=== PATIENT | female | born 1945 | race Caucasian/White ===

== ENCOUNTER → 2017-03-31 | Outpatient (CLI) | payer MEDICARE ==
[~2017-03-31] MED LIST: ALBU0.632 NEB; ALBU5SOL10 IH; ALPR-557 PO; ALPR.25T PO; AMLO5TAB2 PO; ASP81CT PO; ASP81TEC PO; ASPI1TAB17 PO; ATOR80TA PO; ATR20T PO; BNZ20T; CATHETER FLUSH 10 ML SYR IV PRN; CLOP75TA PO; DLT240CCR; HCT25T PO; HSCO125 PO; IOHEXOL 350 MG/ML 100 ML (OMNIPAQUE 350) VIAL IV ONE; LISI20TA PO; LISINOPRIL; METO-272 PO; NS 100 ML (IVPB) BAG IV ONE; NTR.4SL SL; NTR.6TD TOP; ONDA-42 SL; ROSU10TA12 PO; VENTOLIN INHALER INH
--- NOTE | 2017-03-31 13:55 | Diagnostic Imaging Report ---
PROCEDURE: CT abdomen and pelvis with contrast. TECHNIQUE: Multiple contiguous axial images were obtained through the abdomen and pelvis after administration of intravenous contrast. INDICATION: Gross hematuria. History of colon cancer. 100 mL of Omnipaque 350 is administered intravenously. FINDINGS: The lung bases demonstrate minimal atelectasis or scarring. The liver, the spleen, the adrenals, and the pancreas appear unremarkable. Cholecystectomy clips are seen. The kidneys have symmetric enhancement and contrast excretion. There is no hydronephrosis or focal lesion. The urinary bladder appears unremarkable. The abdominal aorta demonstrates an infrarenal aneurysm measuring 3.4 x 2.8 cm in size. This compares to 3.3 x 3 cm on 03/30/2016 exam. There is intramural thrombus. No aneurysmal dilatation of the common iliac arteries is seen. The common iliac arteries demonstrate significant atherosclerotic plaque. There is a stent in the right external iliac artery which appears patent. No para-aortic significantly enlarged lymph node is seen. There is no significant free fluid or fluid collection in the abdomen or pelvis. Srtdw-ni-owhfymfl amount of fecal material is seen in the colon. The osseous structures appear grossly unremarkable. IMPRESSION: Infrarenal 3.4 cm AAA with minimal enlargement compared to 03/30/2016 exam. Dictated by: Dictated on workstation # [id number]
== END ==
LOC: RAD 11:20
PROVIDERS: ATTEND Nurse Practitioner Family
DX: I72.2 Aneurysm of renal artery (principal); R31.0 Gross hematuria; R11.0 Nausea; R10.30 Lower abdominal pain, unspecified
CPT/HCPCS: 74177

== ENCOUNTER 2017-05-11 07:53 | Day surgery (SDC) | payer MEDICARE ==
[2017-05-11] VITALS (9 sets, daily range): BP systolic 128–189; BP diastolic 71–100
[~2017-05-11] VITALS: Ht 152.4 cm; Wt 68.1 kg
[~2017-05-11 07:53] MED LIST changes: -CATHETER FLUSH 10 ML SYR IV PRN; +HEParin (CATH LAB) 2,000 ML IV ONE; -IOHEXOL 350 MG/ML 100 ML (OMNIPAQUE 350) VIAL IV ONE; -NS 100 ML (IVPB) BAG IV ONE; +NS IV 1000 ML 1,000 ML ONE
[2017-05-11] MEDS ORDERED: NS IV 1000 ML 1,000 ML IV SCH ×3 (08:04→12:20)
[2017-05-11 08:42] LABS: MEAN PLATELET VOLUME 10.5 FL (7.4-10.4); RED BLOOD COUNT 4.7 10^6/uL (4.35-5.85); RED CELL DISTRIBUTION WIDTH 14.4 % (10.0-14.5); WHITE BLOOD COUNT 8.8 10^3/uL (4.3-11.0)
[2017-05-11 08:51] LABS: PROTHROMBIN TIME PATIENT 13.1 SEC (12.2-14.7)
[2017-05-11 09:02] LABS: ALANINE AMINOTRANSFERASE 14 U/L (0-55); ALBUMIN 4.1 GM/DL (3.2-4.5); ANION GAP 9 MMOL/L (5-14); ASPARTATE AMINO TRANSFERASE 19 U/L (5-34); BILIRUBIN,TOTAL 0.8 MG/DL (0.1-1.0); BLOOD UREA NITROGEN 14 MG/DL (7-18); BUN/CREATININE RATIO 17; CALCIUM 9.3 MG/DL (8.5-10.1); CARBON DIOXIDE 26 MMOL/L (21-32); CHLORIDE 105 MMOL/L (98-107); CHOLESTEROL 220 MG/DL (< 200); CREATININE SERUM 0.82 MG/DL (0.60-1.30); DIRECT LDL 156 MG/DL (1-129); GFR ESTIMATED > 60; GLUCOSE 100 MG/DL (70-105); POTASSIUM 4.3 MMOL/L (3.6-5.0); SODIUM 140 MMOL/L (135-145); TOTAL PROTEIN 7.8 GM/DL (6.4-8.2); TRIGLYCERIDES 95 MG/DL (<150); VLDL CHOLESTEROL 19 MG/DL (5-40)
[2017-05-11] MEDS ORDERED: ESCI20TA45 PO (09:21)
[2017-05-11] MEDS ORDERED: METO-352 PO (09:21)
[2017-05-11] MEDS ORDERED: ALPR0.254 PO (09:24)
[2017-05-11] MEDS ORDERED: HYDR-753 PO (09:24)
[2017-05-11] MEDS ORDERED: MIDAZOLAM 5 MG/5 ML (VERSED) VIAL ONE (10:16)
[2017-05-11] MEDS ORDERED: diphenhydrAMINE 50 MG/ML INJ (BENADRYL) ONE (10:16)
[2017-05-11] MEDS ORDERED: fentaNYL INJECTION 100 MCG/2 ML AMP ONE (10:16)
--- NOTE | 2017-05-11 10:40 | Cardiac Procedure Note-CS/ASA ---
Pre-Procedure Note Pre-Op Procedure Note H&P Reviewed The H&P was reviewed, patient examined and no changes noted. Date H&P Reviewed: May 11, 2017 Time H&P Reviewed: 10:40 Conscious Sedation Pre-Proced Time Reviewed: 10:40 ASA Class: 3 Airway Mallampati Classification: (shoshone-paiute appropriate class) I. II. III, IV Lungs Heart ASA score ASA 1: a normal healthy patient ASA 2: a patient with a mild systemic disease (mid diabetes, controlled hypertension, obesity ASA 3: a patient with a severe systemic disease that limits activity (angina , COPD, prior Myocardial infarction) ASA 4: a patient with an incapacitating disease that is a constant threat to life (CHF, renal failure) ASA 5: a moribund patient not expected to survive 24 hrs. (ruptured aneurysm) ASA 6: a declared brain patient whose organs are being harvested. For emergent operations, add the letter E after the classification Grade 3 Sedation Plan: Analgesia, Amnesia, Plan communicated to team members, Discussed options with patient/fam, Discussed risks with patient/fam Note The patient is an appropriate candidate to undergo the planned procedure, sedation, and anesthesia. The patient immediately re-assessed prior to indication. KEN HUDDLESTON MD FACP FAC CCDS May 11, 2017 10:40
[2017-05-11] MEDS ORDERED: ENALAPRILAT 2.5 MG/2 ML (VASOTEC) VIAL IV ONE (11:52)
[2017-05-11] MEDS ORDERED: meTOprolol 5 MG/5 ML (LOPRESSOR) VIAL ONE (11:52)
[2017-05-11] MEDS ORDERED: CIPR250S2 PO (12:23)
--- NOTE | 2017-05-11 12:24 | Discharge Inst-Post CATH ---
Discharge Inst-CATH Post Cardiac Cath D/C Inst Follow Up/Plan f/u with Dr Villalba next week CARDIAC CATH DISCHARGE INSTRUCTIONS *Hold Metformin for 48 hours post heart cath. ACTIVITY * Go Home directly and rest. * Limit activity of the leg (or wrist if it was used) for 7 days including aerobics, swimming, jogging, bicycling, etc. * Restrict stair-climbing for 7 days if possible, if not, climb up with your non -cath leg, then bring together on the same step. * Avoid lifting, pushing, pulling or excessive movement of the affected extremity for 7 days. * Customary sexual activity may be resumed after 2 days-use caution not to use a position that strains or causes pain to the affected extremity. * No driving for 24 hours. * NO SMOKING. * Avoid straining for bowel movements for 7 days. * Gentle walking on level ground is allowed. * Returning to work will depend on the type of procedure and the results. Your doctor will discuss this with you. CALL YOUR DOCTOR FOR ANY OF THE FOLLOWING: *If bleeding from the puncture site occurs- Apply gentle pressure to site with clean cloth and call your doctor or EMS. * If a knot or lump forms under the skin, increases in size, or causes pain. * If bruising appears to be worsening or moving further down your leg instead of disappearing. * Temperature above 101 F. CARE OF YOUR GROIN INCISION; * Bruising or purple discoloration of the skin near the puncture site is common. * You may shower only, no bathtub bathing for 5 days. Be careful to avoid slipping as your leg may feel stiff. * If a closure device was used on your femoral artery, please see the attached guide regarding care of the device and your leg. * REMOVE the dressing from your groin the next day after your procedure in the shower. CARE OF YOUR WRIST INCISION; * Bruising or purple discoloration of the skin near the puncture site is common. * You may shower. * DO NOT submerge wrist. * Remove dressing in 24 hours. KEN VILLALBA MD FACP [facility] CCDS May 11, 2017 12:24
--- NOTE | 2017-05-11 12:24 | Discharge Inst-Cardiology ---
Discharge Inst-Cardiac Discharge Medications New Medications: Ciprofloxacin (Cipro) 250 Mg/5 Ml Adeola.mc.rec 250 MG PO BID, #10 TAB Continued Medications: Alprazolam (Alprazolam) 0.25 Mg Tablet 0.25 MG PO TID PRN for ANXIETY, TAB LAST FILLED 03/04/17 #84 Aspirin (Aspirin Ec 81 Mg) 81 Mg Tabec 81 MG PO DAILY, TAB Escitalopram Oxalate (Escitalopram Oxalate) 20 Mg Tablet 20 MG PO DAILY, TAB LAST FILLED 03/04/17 #30 Hydrocodone/Acetaminophen ([place] 10-325 Tablet) 1 Each Tablet 1 TAB PO QID PRN for PAIN-MODERATE, TAB LAST FILLED 03/06/17 #112 Lisinopril (Prinivil) 20 Mg Tablet 20 MG PO DAILY, TAB Metoprolol Succinate (Toprol Xl) 50 Mg Tab.er.24h 50 MG PO DAILY, TAB Orders-Post D/C & Referrals Pneu Vac Indicated: Yes KEN HUDDLESTON MD FACP FAC CCDS May 11, 2017 12:24
[2017-05-11] MEDS ORDERED: PATIENT MAY USE OWN MEDS, ALL PO SCH (12:30)
--- NOTE | 2017-05-11 15:41 | OPERATIVE REPORT ---
PROCEDURE PHYSICIAN: KEN HUDDLESTON DATE OF PROCEDURE: 05/11/2017 PREOPERATIVE DIAGNOSIS: Syncope. POSTOPERATIVE DIAGNOSIS: Syncope. PROCEDURE: Implantable loop recorder implantation. Anaid Potter is a 72-year-old lady who has been experiencing syncope. Implantable loop recorder was carried out after having obtained an informed consent. The left prepectoral and mid parasternal areas were prepared and draped in the usual sterile fashion. 1% lidocaine was used for local anesthesia. We made a small incision just to the left of the sternum and used the tools provided with [employer] Monitor implantable loop recorder to advance the loop recorder in the subcutaneous space and the incision was closed using 3.0 Vicryl. She tolerated the procedure well. The implantable loop recorder is [employer]. Reference number [id number]. Serial number [id number]. Job ID: [id number] Dictated Date: 05/11/2017 12:04:50 Can Labeler Date: 05/11/2017 15:37:08 / eduardo SCHMIDT
--- NOTE | 2017-05-12 10:19 | CARDIAC CATHETERIZATION ---
PROCEDURE PHYSICIAN: KEN HUDDLESTON DATE OF PROCEDURE: 05/11/2017 CARDIAC CATHETERIZATION: Anaid Potter is a 72-year-old lady who is known to have coronary artery disease and has had episodes of syncope. Cardiac catheterization was carried out today to evaluate her coronary disease as the basis of syncope. An informed consent was obtained. PROCEDURE: She is brought to the cardiac catheterization laboratory in a fasting state. The right groin was prepared and draped in usual sterile fashion. 1% lidocaine was used for local anesthesia. Modified Seldinger technique was used to advance a 5-Angolan sheath into the right femoral artery. We carried out angiography of the right femoral artery through the sheath. We used a 5-Angolan JL4 catheter for left coronary angiography and 5-Angolan JR4 catheter for right coronary angiography. We used a 5-Angolan pigtail catheter for left heart catheterization and left ventricular angiography. She tolerated the procedure well. HEMODYNAMICS: Left ventricular end diastolic pressure following coronary angiography was 14 mmHg. There was no significant pressure gradient on pullback across the aortic valve. Ascending aortic pressure was 165/74 with a mean of 72 mmHg. LEFT VENTRICULAR ANGIOGRAPHY: Left ventricular angiography was carried out in the right anterior oblique projection. Global left ventricular systolic function is normal. No regional wall motion abnormalities are seen. Left ventricular ejection fraction of 65 to 70%. There does not appear to be significant mitral regurgitation. CORONARY ANGIOGRAPHY: The left main coronary artery does not exhibit significant disease. The left anterior descending artery has widely patent stent in its proximal and midportion. The proximal stent is known to be Taxus 3 x 32 mm and the mid left anterior descending artery stent is known to be Taxus 3 x 28 mm. The left anterior descending artery has diffuse, moderate disease. The left circumflex artery is extensively stented, including his first obtuse marginal branch. The first obtuse marginal branch is occluded and the left circumflex artery is occluded in its midportion. These are chronic occlusions. There is faint left to left collateralization of the distal left circumflex artery. The right coronary artery is dominant. It is extensively stented. The stents are patent. There is approximately 30% in-stent restenosis. There is approximately 40 to 50% proximal right coronary artery stenosis. The distal right coronary, at its bifurcation with the posterior descending artery, has approximately 40% stenosis. FEMORAL ARTERY ANGIOGRAPHY: Femoral artery angiography shows a patent right external iliac stent, which is known to be 7 x 27, placed in 2012 at [facility]. There is 50% stenosis of the right external iliac artery proximal to the stent. There is 60 to 70% right common femoral artery stenosis. CONCLUSIONS: 1. Coronary artery disease as detailed above. There are patent stents in the proximal (Taxus 3 x 32) and the mid (Taxus 3 x 28 mm) left anterior descending artery. The left anterior descending artery has diffuse, moderate disease. The left circumflex artery is extensively stented and is occluded in its middle portion. The first obtuse marginal branch of the circumflex artery is also occluded. The right coronary artery is extensively stented and there is approximately 30% in-stent restenosis. The ostial and proximal right coronary artery has 40 to 50% stenosis. The distal right coronary artery has approximately 40% stenosis. 2. Mild elevation of left ventricular end-diastolic pressure. 3. Normal global left ventricular systolic function with an ejection fraction of 65 to 70%. 4. Patent stent in the mid right external iliac artery known to be 7 x 27. The proximal right external iliac artery has 50% stenosis. The right common femoral artery has 60 to 70% stenosis. DISCUSSION AND RECOMMENDATIONS: Based on the results of this study, it appears appropriate to continue a conservative regimen for her coronary artery disease. Her coronary artery anatomy has not changed compared to her previous cardiac catheterization of a few years ago. For further evaluation of syncope, an implantable loop recorder is being placed. Job ID: [id number] Dictated Date: 05/11/2017 12:01:19 Mysql Database Administrator Date: 05/12/2017 10:06:04 / eduardo SCHMIDT
== END 2017-05-11 16:30 | disposition home or self-care (01) ==
LOC: CATH 07:53 → EDSTATUS 10:00 → SURG 12:47 → CATH 16:30 → ENPENDDIS 16:30
PROVIDERS: ATTEND Internal Medicine Cardiovascular Disease
DX: R55 Syncope and collapse (principal); I25.10 Atherosclerotic heart disease of native coronary artery without angina pectoris; I25.82 Chronic total occlusion of coronary artery; I70.201 Unspecified atherosclerosis of native arteries of extremities, right leg; R06.02 Shortness of breath; J44.9 Chronic obstructive pulmonary disease, unspecified; G43.909 Migraine, unspecified, not intractable, without status migrainosus; I10 Essential (primary) hypertension; E78.5 Hyperlipidemia, unspecified; Z79.899 Other long term (current) drug therapy; Z72.0 Tobacco use; Z95.5 Presence of coronary angioplasty implant and graft; Z95.820 Peripheral vascular angioplasty status with implants and grafts
CPT/HCPCS: 33282; 36415; 80053; 80061; 85027; 85610; 85730; 87081; 93005; 93458

== ENCOUNTER 2017-06-08 07:01 | Outpatient (CLI) | payer MEDICARE ==
[~2017-06-08] VITALS: Ht 152.4 cm; Wt 68.1 kg
[2017-06-08] VITALS (18 sets, daily range): BP systolic 178–248; BP diastolic 95–169
[~2017-06-08 07:01] MED LIST changes: +ALPR0.254 PO; +ATROPINE INJECTION 1 MG/10 ML SYR (ABBOTT) ONE; +CIPR250S2 PO; +ESCI20TA45 PO; -HEParin (CATH LAB) 2,000 ML IV ONE; +HYDR-753 PO; +METO-352 PO
--- NOTE | 2017-06-09 07:28 | OPERATIVE REPORT ---
DATE OF SERVICE: 06/08/2017 TILT TABLE STUDY ORDERING PHYSICIAN: Dr. Villalba. CLINICAL DIAGNOSIS: Syncope. Tilt table study was carried out after baseline blood pressure was obtained and the patient was attached to a continuous playground monitor. She was made to lie flat and then, the head of the bed was tilted up to 70 degrees and heart rhythm and rate were monitored continuously. Blood pressure was taken every minute. The patient did not tolerate the procedure very well. She remained very hypertensive and was nervous and fidgety. She was able to tolerate this for only about 22 minutes. During this time, there was no significant fall in blood pressure or change in heart rate. Thus, the study does not indicate neurocardiogenic syncope, but the study is less than ideal. CONCLUSIONS: This study is inconclusive for neurocardiogenic syncope. No evidence of neurocardiogenic syncope was seen, but the patient was able to tolerate the study only for about 20 minutes. The study was discontinued at the patient's request on account of generalized feeling of anxiety and nervousness. Job ID: [id number] DocumentID: [id number] Dictated Date: 06/08/2017 13:52:06 Shovel Mechanic Date: 06/09/2017 01:41:21 Dictated By: KEN VILLALBA MD, MA, FACP, FACC, MTDD
== END 2017-06-08 09:25 | disposition home or self-care (01) ==
LOC: CARD 07:01
PROVIDERS: ATTEND Nurse Practitioner Family
DX: R55 Syncope and collapse (principal); I10 Essential (primary) hypertension; I25.10 Atherosclerotic heart disease of native coronary artery without angina pectoris; I65.23 Occlusion and stenosis of bilateral carotid arteries
CPT/HCPCS: 93660

== ENCOUNTER 2017-06-12 19:35 | Observation (INO) | payer MEDICARE ==
[~2017-06-12] VITALS: Ht 152.4 cm; Wt 58.5 kg
[~2017-06-12 19:35] MED LIST changes: -ATROPINE INJECTION 1 MG/10 ML SYR (ABBOTT) ONE; -NS IV 1000 ML 1,000 ML ONE
--- NOTE | 2017-06-12 19:49 | ED Chest Pain ---
General Stated Complaint: CHEST PAIN Source: patient, EMS Exam Limitations: no limitations History of Present Illness Time seen by provider: 19:45 Initial Comments The patient is a 72-year-old white female well-known to me she was apparently at the [facility] and at about 1845 developed severe chest pain and the EMS was called. She took a nitroglycerin while waiting and received another in route. A 325 aspirin was given as well. She has a long cardiac history and has had many previous stents. In addition she has been a smoker and has COPD. She reports that the pain is less at arrival but still present. Timing/Duration: 1 hour Severity/Quality: moderate Location: substernal Radiation: no radiation Activities at Onset: none Prior CP/Workup: cardiac cath, other (many previous interventions and stenting) Allergies and Home Medications Allergies Coded Allergies: codeine (Unverified Allergy, Mild, ITCH, 01/30/14) Uncoded Allergies: PCN (Allergy, Mild, RASH, 05/11/17) Home Medications Alprazolam 0.25 Mg Tablet, 0.25 MG PO TID PRN for ANXIETY, (Reported) LAST FILLED 03/04/17 #84 Aspirin 81 Mg Tabec, 81 MG PO DAILY, (Reported) Ciprofloxacin 250 Mg/5 Ml Adeola.mc.rec, 250 MG PO BID, #10 Prescribed by: KEN HUDDLESTON on 05/11/17 1223 Escitalopram Oxalate 20 Mg Tablet, 20 MG PO DAILY, (Reported) LAST FILLED 03/04/17 #30 Hydrocodone/Acetaminophen 1 Each Tablet, 1 TAB PO QID PRN for PAIN-MODERATE, ( Reported) LAST FILLED 03/06/17 #112 Lisinopril 20 Mg Tablet, 20 MG PO DAILY, (Reported) Metoprolol Succinate 50 Mg Tab.er.24h, 50 MG PO DAILY, (Reported) Review of Systems Constitutional: see HPI EENTM: No Symptoms Reported Respiratory: Cough, Shortness of Air, SOA With Exertion Cardiovascular: See HPI Gastrointestinal: No Symptoms Reported Genitourinary: No Symptoms Reported Musculoskeletal: no symptoms reported Skin: no symptoms reported Psychiatric/Neurological: No Symptoms Reported Endocrine: No Symptoms Reported Hematologic/Lymphatic: No Symptoms Reported Past Pngstid-Hdkrfy-Oljegk Hx Patient Social History Type Used: Cigarettes Respiratory Respiratory Disorders: COPD Reproductive System Hx Reproductive Disorders: No Gastrointestinal Gastrointestinal Disorders: Hemorrhoids Musculoskeletal Musculoskeletal Disorders: Arthritis, Fibromyalgia Cancer Cancer: Colon Physical Exam Vital Signs Vital Sign - Last 12Hours 06/12/17 19:35 Temp 97.2 Pulse 69 Resp 18 B/P (MAP) 171/88 Pulse Ox 97 O2 Delivery Nasal Cannula O2 Flow Rate 2.0 FiO2 97 Capillary Refill : General Appearance: Anxious, Other (appears older than stated age) HEENT: Normal ENT Inspection Neck: Normal Inspection Respiratory: Decreased Breath Sounds Cardiovascular: Regular Rate, Rhythm, No Edema, No Gallop, No JVD, No Murmur, Normal Peripheral Pulses Gastrointestinal: Normal Bowel Sounds, No Organomegaly, No Pulsatile Mass, Non Tender Extremity: Normal Capillary Refill, Normal Inspection, Normal Range of Motion, Non Tender, No Calf Tenderness, No Pedal Edema Neurologic/Psychiatric: Alert, Oriented x3, No Motor/Sensory Deficits, Normal Mood/Affect Skin: Normal Color Other comments Slapping tremor activity of right arm which appears related to anxiety Progress/Results/Core Measures Results/Orders Lab Results Laboratory Tests Test 06/12/17 19:40 Range/Units White Blood Count 10.5 4.3-11.0 10^3/uL Red Blood Count 4.29 L 4.35-5.85 10^6/uL Hemoglobin 14.5 11.5-16.0 G/DL Hematocrit 42 35-52 % Mean Corpuscular Volume 98 80-99 FL Mean Corpuscular Hemoglobin 34 25-34 PG Mean Corpuscular Hemoglobin Concent 35 32-36 G/DL Red Cell Distribution Width 13.7 10.0-14.5 % Platelet Count 200 130-400 10^3/uL Mean Platelet Volume 10.6 H 7.4-10.4 FL Neutrophils (%) (Auto) 49 42-75 % Lymphocytes (%) (Auto) 41 12-44 % Monocytes (%) (Auto) 8 0-12 % Eosinophils (%) (Auto) 2 0-10 % Basophils (%) (Auto) 0 0-10 % Neutrophils # (Auto) 5.2 1.8-7.8 X 10^3 Lymphocytes # (Auto) 4.3 H 1.0-4.0 X 10^3 Monocytes # (Auto) 0.9 0.0-1.0 X 10^3 Eosinophils # (Auto) 0.2 0.0-0.3 10^3/uL Basophils # (Auto) 0.0 0.0-0.1 10^3/uL Prothrombin Time 12.6 12.2-14.7 SEC INR Comment 0.9 0.8-1.4 Sodium Level 141 135-145 MMOL/L Potassium Level 3.9 3.6-5.0 MMOL/L Chloride Level 107 98-107 MMOL/L Carbon Dioxide Level 20 L 21-32 MMOL/L Anion Gap 14 5-14 MMOL/L Blood Urea Nitrogen 15 7-18 MG/DL Creatinine 0.83 0.60-1.30 MG/DL Estimat Glomerular Filtration Rate > 60 BUN/Creatinine Ratio 18 Glucose Level 99 70-105 MG/DL Calcium Level 8.8 8.5-10.1 MG/DL Total Bilirubin 0.2 0.1-1.0 MG/DL Aspartate Amino Transf (AST/SGOT) 17 5-34 U/L Alanine Aminotransferase (ALT/SGPT) 15 0-55 U/L Alkaline Phosphatase 91 40-136 U/L Troponin I < 0.30 <0.30 NG/ML Total Protein 6.5 6.4-8.2 GM/DL Albumin 3.7 3.2-4.5 GM/DL Serum Alcohol 142 H <10 MG/DL My Orders Orders - LOLA PATEL MD Ekg Tracing (06/12/17 19:42) O2 (06/12/17 19:42) Cbc With Automated Diff (06/12/17 19:42) Comprehensive Metabolic Panel (06/12/17 19:42) Drug Screen Stat (Urine) (06/12/17 19:42) Protime With Inr (06/12/17 19:42) Troponin I (06/12/17 19:42) Ua Culture If Indicated (06/12/17 19:42) Chest 1 View, Ap/Pa Only (06/12/17 19:42) Alcohol (06/12/17 20:05) Aspirin Chewable Tablet (Baby Aspirin Ch (06/12/17 20:30) Rx-Nitroglycerin Sl Tabs (Rx-Nitrostat S (06/12/17 20:30) Morphine Injection (Morphine Injection (06/12/17 20:45) Medications Given in ED Current Medications Medications Dose Ordered Sig/Ha Route Start Time Stop Time Status Last Admin Dose Admin Aspirin 81 mg STK-MED ONCE .ROUTE 06/12/17 20:30 06/12/17 20:37 DC 06/12/17 20:35 81 MG Nitroglycerin 0.4 mg STK-MED ONCE SL 06/12/17 20:30 06/12/17 20:37 DC 06/12/17 20:38 0.4 MG Vital Signs/I&O Vital Sign - Last 12Hours 06/12/17 06/12/17 06/12/17 19:35 19:35 19:35 Temp 97.2 Pulse 69 Resp 18 B/P (MAP) 171/88 Pulse Ox 97 97 O2 Delivery Nasal Cannula Nasal Cannula Nasal Cannula O2 Flow Rate 2.0 2.00 2.0 FiO2 97 Departure Communication (Admissions) Progress Notes EKG is nondiagnostic. Troponin is less than 0.30. Blood alcohol was 140. Impression Impression: Primary Impression: chest pain/known coronary artery disease. Disposition: ADMITTED INPATIENT Condition: Stable/Unchanged Admissions Decision to Admit Reason: Admit from ER (General) Decision to Admit/Date: Jun 12, 2017 Time/Decision to Admit Time: 21:19 Transfer Time Spoke to Accepting Phy: 21:19 Departure-Patient Inst. Referrals: MERCEDES PERAZA DO (PCP/Family) Primary Care Physician LOLA PATEL MD Jun 12, 2017 19:49
[2017-06-12 19:51] LABS: BASOPHILS % (AUTO) 0 % (0-10); EOSINOPHILS # (AUTO) 0.2 10^3/uL (0.0-0.3); EOSINOPHILS % (AUTO) 2 % (0-10); LYMPHOCYTES # (AUTO) 4.3 X 10^3 (1.0-4.0); LYMPHOCYTES % (AUTO) 41 % (12-44); MEAN CORPUSCULAR HEMOGLOBIN 34 PG (25-34); MEAN CORPUSCULAR HGB CONC 35 G/DL (32-36); MEAN CORPUSCULAR VOLUME 98 FL (80-99); MEAN PLATELET VOLUME 10.6 FL (7.4-10.4); MONOCYTES # (AUTO) 0.9 X 10^3 (0.0-1.0); MONOCYTES % (AUTO) 8 % (0-12); NEUTROPHILS # (AUTO) 5.2 X 10^3 (1.8-7.8); NEUTROPHILS % (AUTO) 49 % (42-75); PLATELET COUNT 200 10^3/uL (130-400); RED BLOOD COUNT 4.29 10^6/uL (4.35-5.85); RED CELL DISTRIBUTION WIDTH 13.7 % (10.0-14.5); WHITE BLOOD COUNT 10.5 10^3/uL (4.3-11.0)
[2017-06-12 20:01] LABS: INR 0.9 (0.8-1.4); PROTHROMBIN TIME PATIENT 12.6 SEC (12.2-14.7)
[2017-06-12 20:08] LABS: ALANINE AMINOTRANSFERASE 15 U/L (0-55); ALBUMIN 3.7 GM/DL (3.2-4.5); ANION GAP 14 MMOL/L (5-14); ASPARTATE AMINO TRANSFERASE 17 U/L (5-34); BILIRUBIN,TOTAL 0.2 MG/DL (0.1-1.0); BLOOD UREA NITROGEN 15 MG/DL (7-18); BUN/CREATININE RATIO 18; CALCIUM 8.8 MG/DL (8.5-10.1); CARBON DIOXIDE 20 MMOL/L (21-32); CHLORIDE 107 MMOL/L (98-107); CREATININE SERUM 0.83 MG/DL (0.60-1.30); GFR ESTIMATED > 60; GLUCOSE 99 MG/DL (70-105); POTASSIUM 3.9 MMOL/L (3.6-5.0); SODIUM 141 MMOL/L (135-145); TOTAL PROTEIN 6.5 GM/DL (6.4-8.2)
[2017-06-12 20:16] LABS: TROPONIN I < 0.30 NG/ML (<0.30)
--- NOTE | 2017-06-12 20:29 | Diagnostic Imaging Report ---
INDICATION: Chest pain, shortness of breath. COMPARISON: Previous study from January 30, 2014. FINDINGS: A new implantable cardiac monitoring device is demonstrated. Heart size is unchanged. There are chronic prominent pulmonary interstitial markings and multiple calcified granulomas. There is no evidence of new infiltrate or consolidation or findings to suggest pulmonary edema and failure. No effusion or pneumothorax is evident. IMPRESSION: Chronic interstitial changes within the lungs and multiple calcified granulomas. There is a new cardiac monitoring device but no radiographic evidence of an acute cardiopulmonary process. Dictated by: Dictated on workstation # [id number]
[2017-06-12] MEDS ORDERED: RX-NITROGLYCERIN 0.4 MG TAB BTL 25'S SL ONE (20:30)
[2017-06-12] MEDS ORDERED: ASPIRIN 81 MG CHEW (CHILDREN'S ASA) ONE (20:30)
[2017-06-12] MEDS ORDERED: morphine INJ 10 MG/ML 1ML (SYR OR VIAL) IVP ONE (20:45)
[2017-06-12 21:16] LABS: BILIRUBIN,URINE NEGATIVE (NEGATIVE); KETONES,URINE NEGATIVE (NEGATIVE); LEUKOCYTE ESTERASE ,URINE NEGATIVE (NEGATIVE); NITRITE,URINE NEGATIVE (NEGATIVE); PH,URINE 7 (5-9); PROTEIN,URINE NEGATIVE (NEGATIVE); UROBILINOGEN,URINE NORMAL (NORMAL)
[2017-06-12 22:14] VITALS: BP 166/89
[2017-06-12 22:30] VITALS: BP 159/77
[2017-06-12] MEDS ORDERED: ALPRAZolam 0.25 MG (XANAX) TAB PO PRN (22:30)
[2017-06-12] MEDS ORDERED: HYDROcodone/APAP 10 MG/325 MG (LORTAB) TAB PO PRN (22:30)
[2017-06-12 22:45] VITALS: BP 153/85
[2017-06-12 23:00] VITALS: BP 140/66
[2017-06-12 23:47] VITALS: BP 153/85
[2017-06-13] VITALS: BP 107/53
[2017-06-13] MEDS ORDERED: RT-ALBUTEROL SULF 2.5 MG/3 ML PRE-MIX VIAL IH PRN (03:30)
[2017-06-13 04:00] VITALS: BP 120/58
[2017-06-13] MEDS: RT-ALBUTEROL/IPRATROPIUM 3 ML (DUONEB) VIAL INH SCH ×3 (06:26→10:15)
[2017-06-13 08:22] VITALS: BP 133/82
[2017-06-13] MEDS ORDERED: meTOproloL SUCCINATE 50 MG (TOPROL XL) TAB PO SCH (09:00)
[2017-06-13] MEDS ORDERED: ASPIRIN 81 MG CHEW (CHILDREN'S ASA) PO SCH (09:00)
[2017-06-13] MEDS ORDERED: oxyCODONE/APAP 10/325MG (PERCOCET 10) TABLET PO ONE (10:16)
--- NOTE | 2017-06-13 10:36 | Discharge Instructions ---
Discharge Inst-[facility] Discharge Medications New, Converted or Re-Newed RX: Other Continued Medications: Alprazolam (Alprazolam) 0.25 Mg Tablet 0.25 MG PO TID PRN for ANXIETY, TAB LAST FILLED 03/04/17 #84 Aspirin (Aspirin Ec 81 Mg) 81 Mg Tabec 81 MG PO DAILY, TAB Ciprofloxacin (Cipro) 250 Mg/5 Ml Adeola.mc.rec 250 MG PO BID, #10 TAB Escitalopram Oxalate (Escitalopram Oxalate) 20 Mg Tablet 20 MG PO DAILY, TAB LAST FILLED 03/04/17 #30 Hydrocodone/Acetaminophen ([place] 10-325 Tablet) 1 Each Tablet 1 TAB PO QID PRN for PAIN-MODERATE, TAB LAST FILLED 03/06/17 #112 Lisinopril (Prinivil) 20 Mg Tablet 20 MG PO DAILY, TAB Metoprolol Succinate (Toprol Xl) 50 Mg Tab.er.24h 50 MG PO DAILY, TAB Patient Instructions Goal/Follow Up Appt: -[facility] [place] TRANSITION NURSE WILL CALL YOU ON WEDNESDAY WITH AN APPOINTMENT TO SEE DR HUDDLESTON WELL YOUR PCP FROM [facility]. Patient Instructions: -PLEASE CONTINUE YOUR REGULAR HOME MEDICATION REGIMEN Return to The Hospital For: RECURRENT CHEST PAIN OR SHORTNESS OF BREATH Activity & Diet Discharge Diet: Low Fat/Low Cholesterol Activity as Tolerated: Yes Orders-Post D/C & Referrals Pneu Vac Indicated: Yes Copy Copies To 1: BHARATHI RIDER MD, JULIE A MD Jun 13, 2017 10:36
--- NOTE | 2017-06-16 14:36 | Short Stay Summary ---
HPI Attending Physician Bharathi Rider MD PCP Jade Choe DO Consult Date of Admission Jun 12, 2017 at 22:08 Home Medications Home Medications Reviewed patient Home Medication Reconciliation Form Allergies Coded Allergies: codeine (Unverified Allergy, Mild, ITCH, 01/30/14) Uncoded Allergies: PCN (Allergy, Mild, RASH, 05/11/17) GLU-Cvrfuc-Hiwxfk Hx Patient Social History Alcohol Use: Occasionally Uses Recreational Drug Use: No Smoking Status: Current Everyday Smoker Type Used: Cigarettes 2nd Hand Smoke Exposure: No Recent Foreign Travel: No Contact w/other who traveled: No Recent Hopitalizations: No Recent Infectious Disease Expo: No Physical Abuse Screen: No Sexual Abuse: No Physical Exam-([facility]) Physical Exam Vital Signs Capillary Refill : Less Than 3 Seconds Clinical Quality Measures AMI/AHF: ASA po Prior to arrival: Yes (324) DVT/VTE Risk/Contraindication: Risk Factor Score Per Nursin RFS Level Per Nursing on Admit: 3=High BHARATHI RIDER MD Jun 16, 2017 14:36
== END 2017-06-13 10:34 | disposition home or self-care (01) ==
LOC: EDUNIT# 19:35 → ER 19:36 → UNDOADMOB 21:27 → ICU 21:27 → UNDODISOB 06-13 10:55
PROVIDERS: ADMIT Pediatrics; ATTEND Pediatrics
DX: R07.9 Chest pain, unspecified (principal); I25.10 Atherosclerotic heart disease of native coronary artery without angina pectoris; J44.9 Chronic obstructive pulmonary disease, unspecified; F17.210 Nicotine dependence, cigarettes, uncomplicated; Z79.82 Long term (current) use of aspirin; Z79.899 Other long term (current) drug therapy; Z95.5 Presence of coronary angioplasty implant and graft; Z95.818 Presence of other cardiac implants and grafts
CPT/HCPCS: 36415; 71010; 80053; 80306; 80320; 81000; 84484; 85025; 85610; 93005; 94640

== ENCOUNTER → 2018-02-22 | Outpatient (CLI) | payer MEDICARE ==
[~2018-02-22] MED LIST changes: +AMLO10TA2 PO; +ASPI-983 PO; +CIPR500T4 PO; +DOXA1TAB2 PO; +OXYC10TA55 PO
--- NOTE | 2018-02-22 12:56 | Diagnostic Imaging Report ---
PROCEDURE: US abdomen complete. TECHNIQUE: Multiple real-time grayscale images were obtained over the abdomen in various projections. INDICATION: Epigastric pain There are no recent abdominal ultrasound examinations available for comparison. The aortic ultrasound exam performed on 12/28/2012 failed to show any sign of an aneurysm of the aorta. The mid abdominal aorta did measure 2.2 x 2.[address] abdomen/pelvis exam of 03/31/2017 indicated that the infrarenal aorta was aneurysmal dilated measuring 2.8 x 3.4 CM. On this exam the distal diameter is estimated to be only 3.0 x 2.8 CM. I suspect that this evaluation of the aneurysm is under measured and I do feel that the CT exam is more accurate. If further evaluation is desired, then repeat CT exam should be obtained. There is no other evidence for aneurysm of the aorta. Also as noted on CT exam the gallbladder is surgically absent. The common bile duct measures 6.2 MM. There is no evidence for choledocholithiasis. The liver, spleen, kidneys and inferior vena cava are within normal limits. The pancreas was obscured by bowel gas. IMPRESSION: 1. The infrarenal aneurysm of the abdominal aorta seen on the recent CT exam does measure somewhat smaller. It is unlikely that the aneurysm has decreased in size however. Recommendations as above. 2. There is no acute abnormality of the abdomen noted. 3. The gallbladder is surgically absent. Dictated by: Dictated on workstation # [id number]
== END ==
LOC: RAD 08:44
PROVIDERS: ATTEND Family Medicine
DX: I71.4 Abdominal aortic aneurysm, without rupture (principal); Z90.49 Acquired absence of other specified parts of digestive tract
CPT/HCPCS: 76700

== ENCOUNTER → 2019-07-10 | Outpatient (CLI) | payer MEDICARE ==
[~2019-07-10] MED LIST changes: -AMLO10TA2 PO; +AMLO10TA7 PO; +HYDR-4196 PO; -HYDR-753 PO
--- NOTE | 2019-07-10 09:34 | Diagnostic Imaging Report ---
Indication: Aneurysm. Findings: Proximal third of the infrarenal aorta is 2.2 cm diameter. This mild fusiform aneurysmal dilatation of the infrarenal aorta measuring 3.7 cm in maximal transverse dimension, the dilatation extends a longitudinal length of 9.3 cm. Impression: Infrarenal abdominal aortic aneurysm 3.7 cm maximal transverse dimension, nonaneurysmal iliac origins. Dictated by: Dictated on workstation # [id number]
== END ==
LOC: RAD 07:17
PROVIDERS: ATTEND Internal Medicine Cardiovascular Disease
DX: I71.4 Abdominal aortic aneurysm, without rupture (principal); I44.2 Atrioventricular block, complete; I10 Essential (primary) hypertension; I65.29 Occlusion and stenosis of unspecified carotid artery; J44.9 Chronic obstructive pulmonary disease, unspecified; I73.9 Peripheral vascular disease, unspecified; I25.10 Atherosclerotic heart disease of native coronary artery without angina pectoris; E78.5 Hyperlipidemia, unspecified; Z72.0 Tobacco use
CPT/HCPCS: 76775

== ENCOUNTER 2019-08-29 07:50 | Day surgery (SDC) | payer MEDICARE ==
[2019-08-29] VITALS (9 sets, daily range): BP systolic 145–195; BP diastolic 69–97
[~2019-08-29] VITALS: Ht 152.4 cm; Wt 65.4 kg
[2019-08-29] MEDS ORDERED: NS IV 1000 ML 1,000 ML IV SCH ×2 (08:02→11:24)
[2019-08-29] MEDS ORDERED: HEParin (CATH LAB) 2,000 ML IV ONE (08:04)
[2019-08-29] MEDS ORDERED: NS IV 1000 ML 1,000 ML ONE (08:04)
[2019-08-29] MEDS ORDERED: LIDOCAINE 1% INJ 20 ML 20 ML VIAL ONE (08:04)
[2019-08-29 08:36] LABS: HEMOGLOBIN 14.5 G/DL (11.5-16.0); MEAN PLATELET VOLUME 10.4 FL (7.4-10.4); RED CELL DISTRIBUTION WIDTH 13.2 % (10.0-14.5); WHITE BLOOD COUNT 8.3 10^3/uL (4.3-11.0)
[2019-08-29 08:57] LABS: INR 0.9 (0.8-1.4); PROTHROMBIN TIME PATIENT 12.7 SEC (12.2-14.7)
[2019-08-29 09:05] LABS: ALANINE AMINOTRANSFERASE 15 U/L (0-55); ALBUMIN 4.2 GM/DL (3.2-4.5); ALKALINE PHOSPHATASE 96 U/L (40-136); BILIRUBIN,TOTAL 0.6 MG/DL (0.1-1.0); BUN/CREATININE RATIO 12; CALCIUM 9.4 MG/DL (8.5-10.1); CARBON DIOXIDE 23 MMOL/L (21-32); CHLORIDE 104 MMOL/L (98-107); CHOLESTEROL 221 MG/DL (< 200); GFR ESTIMATED > 60; GLUCOSE 112 MG/DL (70-105); HDL CHOLESTEROL 49 MG/DL (40-60); POTASSIUM 4.1 MMOL/L (3.6-5.0); SODIUM 138 MMOL/L (135-145); TOTAL PROTEIN 7.6 GM/DL (6.4-8.2); TRIGLYCERIDES 183 MG/DL (<150); VLDL CHOLESTEROL 37 MG/DL (5-40)
[2019-08-29] MEDS ORDERED: METO200T48 PO (09:14)
[2019-08-29] MEDS ORDERED: FLU QUADRIvalent (5+ YOA) 2019-2020 (AFLURIA) 0.5 ML IM ONE (09:15)
[2019-08-29] MEDS ORDERED: CATHETER FLUSH 10 ML SYR IV PRN (09:15)
[2019-08-29] MEDS ORDERED: POLY17PO6 PO (09:16)
--- NOTE | 2019-08-29 09:21 | NUR ---
SPOKE WITH PT (SHE HAD HER MED BOTTLES) WELL CALL [facility] TO COMPLETE THE MED REC. PT WAS ABLE TO TELL ME HOW/WHEN SHE TAKES EACH MED, AND THAT MATCHED THE LABEL ON HER BOTTLES. THE FOLLOWING ARE FILL DATES ACCORDING TO [facility]: 08-21-2019 AMLODIPINE #90/90DS 08-21-2019 METOPROLOL #30/30 08-21-2019 HYDROCODONE #112/28DS OTC MEDS: ASPIRIN 81 MIRALAX PRN
[2019-08-29] MEDS ORDERED: fentaNYL INJECTION 100 MCG/2 ML AMP ONE (09:51)
[2019-08-29] MEDS ORDERED: MIDAZOLAM 5 MG/5 ML (VERSED) VIAL ONE (09:51)
--- NOTE | 2019-08-29 10:02 | Cardiac Procedure Note-CS/ASA ---
Pre-Procedure Note Pre-Op Procedure Note H&P Reviewed The H&P was reviewed, patient examined and no changes noted. Date H&P Reviewed: Aug 29, 2019 Time H&P Reviewed: 10:02 Conscious Sedation Pre-Proced Time 10:02 ASA Score 3 For ASA 3 and 4: Consider anesthesia and medical clearance. Also, for patients with a history of failed moderate sedation consider anesthesia. Airway Lungs Heart ASA score ASA 1: a normal healthy patient ASA 2: a patient with a mild systemic disease (mid diabetes, controlled hypertension, obesity ASA 3: a patient with a severe systemic disease that limits activity (angina, COPD, prior Myocardial infarction) ASA 4: a patient with an incapacitating disease that is a constant threat to life (CHF, renal failure) ASA 5: a moribund patient not expected to survive 24 hrs. (ruptured aneurysm) ASA 6: a declared brain- patient whose organs are being harvested. For emergent operations, add the letter E after the classification Mallampati Classification Grade 2 Sedation Plan Analgesia, Amnesia, Plan communicated to team members, Discussed options with patient/fam, Discussed risks with patient/fam The patient is an appropriate candidate to undergo the planned procedure, sedation, and anesthesia. The patient immediately re-assessed prior to indication. KEN HUDDLESTON MD FACP FAC CCDS Aug 29, 2019 10:02 POS
[2019-08-29] MEDS ORDERED: HEParin 1000 UNIT/ML (10ML VIAL) FOR BOLUS ONE (10:49)
[2019-08-29] MEDS ORDERED: ATOR40TA70 PO (11:27)
--- NOTE | 2019-08-29 11:28 | Discharge Inst-Cardiology ---
Discharge Inst-Cardiac Discharge Medications New Medications: Atorvastatin Calcium (Atorvastatin Calcium) 40 Mg Tablet 40 MG PO DAILY, #30 TAB 5 Refills Continued Medications: Amlodipine Besylate (Amlodipine Besylate) 10 Mg Tablet 10 MG PO DAILY, TAB Aspirin (Aspirin EC) 81 Mg Tablet.dr 81 MG PO DAILY, TAB Hydrocodone/Acetaminophen ([place] 10-325 Tablet) 1 Each Tablet 1 TAB PO Q6H PRN for PAIN-MODERATE (5-7), TAB Metoprolol Succinate (Metoprolol Succinate) 200 Mg Tab.er.24h 200 MG PO DAILY, TAB Polyethylene Glycol 3350 (Miralax) 17 Gm Powd.pack 17 GM PO DAILY PRN for CONSTIPATION-2ND LINE, EACH KEN HUDDLESTON MD FACP FACC CCDS Aug 29, 2019 11:28 POS
--- NOTE | 2019-08-29 11:28 | Discharge Inst-Post CATH ---
Discharge Inst-CATH/EP Post Cardiac Cath/EP D/C Inst Follow Up/Plan F/u with Dr Villalba in 2 weeks ACTIVITY * Go Home directly and rest. * Limit activity of the leg (or wrist if it was used) for 7 days including aerobics, swimming, jogging, bicycling, etc. * Restrict stair-climbing for 7 days if possible, if not, climb up with your no n-cath leg, then bring together on the same step. * Avoid lifting, pushing, pulling or excessive movement of the affected ext remity for 7 days. * Customary sexual activity may be resumed after 2 days-use caution not to use a position that strains or causes pain to the affected extremity. * No driving for 24 hours. * NO SMOKING. * Avoid straining for bowel movements for 7 days. * Gentle walking on level ground is allowed. * Returning to work will depend on the type of procedure and the results. Your doctor will discuss this with you. CALL YOUR DOCTOR FOR ANY OF THE FOLLOWING: *If bleeding from the puncture site occurs- Apply gentle pressure to site with clean cloth and call your doctor or EMS. * If a knot or lump forms under the skin, increases in size, or causes pain. * If bruising appears to be worsening or moving further down your leg instead of disappearing. * Temperature above 101 F. CARE OF YOUR GROIN INCISION; * Bruising or purple discoloration of the skin near the puncture site is common. * You may shower only, no bathtub bathing for 5 days. Be careful to avoid slipping as your leg may feel stiff. * If a closure device was used on your femoral artery, please see the attached guide regarding care of the device and your leg. * Leave dressing on FOR 24 hours. CARE OF YOUR WRIST INCISION; * Bruising or purple discoloration of the skin near the puncture site is common. * You may shower. * DO NOT submerge wrist. * Leave dressing on FOR 24 hours. KEN VILLALBA MD FAC FAC CCDS Aug 29, 2019 11:28 POS
[2019-08-29] MEDS ORDERED: PATIENT MAY USE OWN MEDS, ALL PO SCH (11:30)
--- NOTE | 2019-08-29 13:56 | OPERATIVE REPORT ---
DATE OF SERVICE: 08/29/2019 PERIPHERAL ANGIOGRAPHY REPORT The patient is a 74-year-old lady with known peripheral arterial disease and multiple peripheral arterial disease risk factors. She has severe left leg claudication. Informed consent was obtained for peripheral angiography and possible ad hoc intervention. DESCRIPTION OF PROCEDURE: She was brought to the cardiac catheterization laboratory. Right groin was prepared and draped in the usual sterile fashion. Lidocaine 1% was used for local anesthesia. Modified Seldinger technique was used to advance a 5-Burmese sheath in the right femoral artery. A 5-Burmese pigtail catheter was used for abdominal aortic angiography. A 5-Burmese pigtail catheter was pulled back to the level of the aortoiliac bifurcation and bilateral leg artery angiography was performed with runoff down to the level of the ankles on both sides. Selective angiography of the left common iliac (contralateral common iliac) was carried out using a 5-Burmese crossover catheter, which provided selective angiography with runoff down to the level of the popliteal artery on the left side. The diagnostic catheters were removed. Manual pressure was used to achieve hemostasis following sheath removal. She tolerated the procedure well. ABDOMINAL AORTIC ANGIOGRAPHY: Abdominal aortic angiography revealed an ectatic abdominal aorta, which exhibits considerable calcification. The renal arteries were identified. These are intact and do not exhibit significant stenoses. The mesenteric arteries, to the extent seen, do not exhibit significant stenosis. The aortoiliac bifurcation has atherosclerotic disease with considerable calcification. BILATERAL LEG ARTERY ANGIOGRAPHY: Bilateral leg artery angiography was performed first using the pigtail catheter and then with selective angiography of the left common iliac with runoff. On the right side, there is a patent stent in the external iliacs. However, the right iliac arterial system, including the distal common iliac and the entire right external iliac and the right common femoral exhibit 60% to 70% stenosis. This is a long stenosis. The right superficial femoral artery is heavily calcified. It exhibits up to 50% stenosis. The right popliteal is intact and there is a 2-vessel runoff in the right leg. On the left side, the ostium of the left common iliac exhibits approximately 50% stenosis. The rest of the iliac system on the left side has moderate atherosclerotic disease and calcification. The left common femoral has moderate atherosclerotic disease. The left superficial femoral artery is occluded at its ostium. This is a long occlusion and the left superficial femoral reconstitutes in its mid portion via collaterals that are mostly supplied by the left deep femoral artery. The left popliteal arteries are intact and there is a 2-vessel runoff in the left leg. The occlusion in the left superficial femoral artery is flush at the bifurcation and the ostium of this artery cannot be identified on angiography. CONCLUSIONS: 1. Ectatic abdominal aorta with atherosclerosis and calcification, but without significant aneurysm formation. 2. Intact renal arteries on both sides. 3. Moderate atherosclerosis of the aortoiliac bifurcation with approximately 50% ostial stenosis of the left common iliac artery. 4. On the right side, there is a patent stent in the external iliac artery, but the entire distal right common iliac, right external iliac and the right common femoral arteries exhibit diffuse 60 to 70% stenosis. The right superficial femoral artery has diffuse moderate disease and there is a 2-vessel runoff in the right leg. 5. Ostial occlusion of the left superficial femoral artery with reconstitution via collaterals in its mid portion and with a 2-vessel runoff in the left leg. DISCUSSION AND RECOMMENDATIONS: Based on the anatomy, it appears that femoropopliteal bypass surgery on the left would be the best treatment option so that the ostium of the left deep femoral artery (supplying collateral flow to the distal left superficial femoral) is not compromised, such as could be the case in a percutaneous intervention, especially if stent is placed across the ostium of the left deep femoral. Accordingly, we will refer for surgical evaluation. Risk factor modification was discussed with the patient. She has been advised to refrain from tobacco use and be compliant with medications. Job ID: [id number] DocumentID: [id number] Dictated Date: 08/29/2019 11:21:49 Processor Inspector Date: 08/29/2019 13:56:08 Dictated By: KEN HUDDLESTON MD, MA, FACP, FACC, MTDD
== END 2019-08-29 15:25 | disposition home or self-care (01) ==
LOC: CATH 07:50 → CSD 11:43 → CATH 15:25
PROVIDERS: ATTEND Internal Medicine Cardiovascular Disease
DX: I70.203 Unspecified atherosclerosis of native arteries of extremities, bilateral legs (principal); I77.811 Abdominal aortic ectasia; I25.10 Atherosclerotic heart disease of native coronary artery without angina pectoris; I77.89 Other specified disorders of arteries and arterioles; M47.892 Other spondylosis, cervical region; J44.9 Chronic obstructive pulmonary disease, unspecified; I10 Essential (primary) hypertension; E78.5 Hyperlipidemia, unspecified; M48.061 Spinal stenosis, lumbar region without neurogenic claudication; G43.909 Migraine, unspecified, not intractable, without status migrainosus; F17.210 Nicotine dependence, cigarettes, uncomplicated; F32.9 Major depressive disorder, single episode, unspecified; Z95.0 Presence of cardiac pacemaker; Z79.02 Long term (current) use of antithrombotics/antiplatelets; Z79.899 Other long term (current) drug therapy; Z91.19 Patient's noncompliance with other medical treatment and regimen; Z88.5 Allergy status to narcotic agent; Z88.0 Allergy status to penicillin
CPT/HCPCS: 36415; 75625; 75716; 80053; 80061; 85027; 85610; 85730; 87081

== ENCOUNTER → 2019-09-19 | Outpatient (CLI) | payer MEDICARE ==
[2019-09-19] VITALS (46 sets, daily range): BP systolic 141–181; BP diastolic 63–88
[~2019-09-19] VITALS: Ht 152.4 cm; Wt 65.4 kg
[~2019-09-19] MED LIST changes: +ATOR40TA70 PO; +METO200T48 PO; +NS IV 1000 ML 1,000 ML ONE; +POLY17PO6 PO
--- NOTE | 2019-09-21 08:43 | PROCEDURE REPORT ---
DATE OF SERVICE: 09/19/2019 TILT TABLE STUDY ORDERING PHYSICIAN: REYNA Wilde PRIMARY PHYSICIAN: Dr. Rojas. OTHER PHYSICIAN: Rosario Villalba MD, MA, FACP, FACC CLINICAL DIAGNOSIS: Syncope. Baseline blood pressure was obtained. The patient was made to lie flat and blood pressure repeated. She was attached to a monitoring tech. The table was tilted with the patient's head up at 70 degrees. The position was maintained for 40 minutes. There was no significant drop in blood pressure or heart rate. She did not experience symptoms. She tolerated the procedure well. CONCLUSION: Tilt table study negative for neurocardiogenic syncope. Job ID: [id number] DocumentID: [id number] Dictated Date: 09/19/2019 14:41:21 Warehouse Receiving Clerk Date: 09/19/2019 21:23:49 Dictated By: ROSARIO VILLALBA MD, MA, FACP, FACC,
== END ==
LOC: CARD 06:43
PROVIDERS: ATTEND Nurse Practitioner Family
DX: I25.10 Atherosclerotic heart disease of native coronary artery without angina pectoris (principal); I73.9 Peripheral vascular disease, unspecified; R55 Syncope and collapse; Z72.0 Tobacco use
CPT/HCPCS: 93660

== ENCOUNTER 2019-09-26 06:31 | Day surgery (SDC) | payer MEDICARE ==
[2019-09-26] VITALS (14 sets, daily range): BP systolic 130–166; BP diastolic 60–84
[~2019-09-26] VITALS: Ht 152 cm; Wt 65.0 kg
[~2019-09-26 06:31] MED LIST changes: -NS IV 1000 ML 1,000 ML ONE
[2019-09-26] MEDS ORDERED: HEParin 1000 UNIT/ML (10ML VIAL) FOR BOLUS ONE (06:44)
[2019-09-26] MEDS ORDERED: LIDOCAINE 1% INJ 20 ML 20 ML VIAL ONE (06:44)
[2019-09-26] MEDS ORDERED: NS IV 1000 ML 3,000 ML ONE (06:44)
[2019-09-26] MEDS ORDERED: NS IV 1000 ML 1,000 ML IV SCH ×2 (06:45→09:32)
[2019-09-26 07:16] LABS: HEMOGLOBIN 15.1 G/DL (11.5-16.0); MEAN PLATELET VOLUME 10.8 FL (7.4-10.4); RED CELL DISTRIBUTION WIDTH 13.7 % (10.0-14.5); WHITE BLOOD COUNT 10.8 10^3/uL (4.3-11.0)
[2019-09-26] MEDS ORDERED: ATOR40TA70 PO (07:20)
[2019-09-26 07:23] LABS: PROTHROMBIN TIME PATIENT 13.7 SEC (12.2-14.7)
[2019-09-26 07:30] LABS: ALANINE AMINOTRANSFERASE 15 U/L (0-55); ALBUMIN 4.3 GM/DL (3.2-4.5); ALKALINE PHOSPHATASE 103 U/L (40-136); BILIRUBIN,TOTAL 0.4 MG/DL (0.1-1.0); BUN/CREATININE RATIO 16; CALCIUM 9.4 MG/DL (8.5-10.1); CARBON DIOXIDE 21 MMOL/L (21-32); CHLORIDE 108 MMOL/L (98-107); CHOLESTEROL 183 MG/DL (< 200); CREATININE SERUM 0.91 MG/DL (0.60-1.30); GFR ESTIMATED > 60; GLUCOSE 110 MG/DL (70-105); HDL CHOLESTEROL 49 MG/DL (40-60); POTASSIUM 4.1 MMOL/L (3.6-5.0); SODIUM 140 MMOL/L (135-145); TOTAL PROTEIN 7.9 GM/DL (6.4-8.2); TRIGLYCERIDES 108 MG/DL (<150); VLDL CHOLESTEROL 22 MG/DL (5-40)
[2019-09-26] MEDS ORDERED: METO-395 PO (07:33)
--- NOTE | 2019-09-26 07:34 | NUR ---
SPOKE WITH THE PT (SHE HAD HOME MEDS) WELL CALLING [facility] TO COMPLETE THE MED REC. PT WAS ABLE TO TELL ME HOW/WHEN SHE TAKES EACH MED. THE FOLLOWING ARE FILL DATES ACCORDING TO [facility] 08-29-2019 ATORVASTATIN #30/30DS 09-13-2019 METOPROLOL 200MG #90/90DS 09-19-2019 HYDROCODONE #112/28DS 09-21-2019 METOPROLOL 100MG #90/90DS OTC: ASPIRIN 81 MIRALAX PT WAS ON AMLODIPINE BUT SAYS THAT WAS DISCONTINUED (SHE STILL HAD THE BOTTLE WITH HER THAT HAD BEEN FILLED IN MARCH 2019)
[2019-09-26] MEDS ORDERED: fentaNYL INJECTION 100 MCG/2 ML AMP ONE (07:49)
[2019-09-26] MEDS ORDERED: MIDAZOLAM 5 MG/5 ML (VERSED) VIAL ONE (07:49)
[2019-09-26] MEDS ORDERED: NITRO DRIP 25000 MCG/D5W 250 ML IV ONE (08:37)
[2019-09-26] MEDS ORDERED: EPTIFIBATIDE BOLUS 20 ML IV ONE (08:45)
[2019-09-26] MEDS ORDERED: CLOPIDOGREL 300 MG (PLAVIX) TABLET PO ONE (08:58)
[2019-09-26] MEDS ORDERED: ASPIRIN 81 MG CHEW (CHILDREN'S ASA) ONE (08:58)
--- NOTE | 2019-09-26 09:32 | Cardiac Procedure Note-CS/ASA ---
Pre-Procedure Note Pre-Op Procedure Note H&P Reviewed The H&P was reviewed, patient examined and no changes noted. Date H&P Reviewed: Sep 26, 2019 Time H&P Reviewed: 08:20 Conscious Sedation Pre-Proced Time 08:20 ASA Score 3 For ASA 3 and 4: Consider anesthesia and medical clearance. Also, for patients with a history of failed moderate sedation consider anesthesia. Airway Lungs Heart ASA score ASA 1: a normal healthy patient ASA 2: a patient with a mild systemic disease (mid diabetes, controlled hypertension, obesity ASA 3: a patient with a severe systemic disease that limits activity (angina, COPD, prior Myocardial infarction) ASA 4: a patient with an incapacitating disease that is a constant threat to life (CHF, renal failure) ASA 5: a moribund patient not expected to survive 24 hrs. (ruptured aneurysm) ASA 6: a declared brain- patient whose organs are being harvested. For emergent operations, add the letter E after the classification Mallampati Classification Grade 2 Sedation Plan Analgesia, Amnesia, Plan communicated to team members, Discussed options with patient/fam, Discussed risks with patient/fam The patient is an appropriate candidate to undergo the planned procedure, sedation, and anesthesia. The patient immediately re-assessed prior to indication. KEN HUDDLESTON MD FACP FAC CCDS Sep 26, 2019 09:32 POS
[2019-09-26] MEDS ORDERED: PATIENT MAY USE OWN MEDS, ALL PO SCH (09:45)
[2019-09-26] MEDS ORDERED: NON-FORMULARY MEDICATION 1 EA EA (Hydrocodone/Acetaminophen (Norco 10-325 Tablet) 1 TAB) PO PRN (09:45)
[2019-09-26] MEDS ORDERED: NON-FORMULARY MEDICATION 1 EA EA (Polyethylene Glycol 3350 (Miralax) 17 GM) PO PRN (09:45)
--- NOTE | 2019-09-26 12:11 | CARDIAC CATHETERIZATION ---
DATE OF SERVICE: 09/26/2019 CARDIAC CATHETERIZATION AND CORONARY INTERVENTION REPORT INDICATION: The patient is a 74-year-old lady who is known to have coronary artery disease and has a dual chamber pacemaker in place for symptomatic bradycardia. Recent interrogation had indicated one brief asymptomatic run of nonsustained ventricular tachycardia in 04/2019. We recommended cardiac catheterization for evaluation for worsening of coronary artery disease as the basis of her nonsustained ventricular tachycardia. Informed consent was obtained. DESCRIPTION OF PROCEDURE: She was brought to the cardiac catheterization during fasting state. Right groin was prepared and draped in usual sterile fashion. Lidocaine 1% was used for local anesthesia. Modified Seldinger technique was used to advance a 5-Hungarian sheath in right femoral artery, 5-Hungarian JL4 catheter for left coronary angiography, 5-Hungarian JR4 catheter for right coronary angiography, 5-Hungarian pigtail catheter was used for left heart catheterization and left ventricular angiography. Subsequently, percutaneous intervention was carried out for in-stent restenosis in the right coronary, which is described below. PERCUTANEOUS INTERVENTION TO THE RIGHT CORONARY ARTERY: The right coronary artery was exhibiting 70% in-stent restenosis in its proximal portion that was unrelieved with intracoronary nitroglycerin. We exchanged the sheath over a wire for a 6-Hungarian sheath. We used a 6-Hungarian JR4 guide catheter with a short tape to engage the right coronary artery. We advanced a ChoICE extra support wire across the lesion. We carried out balloon angioplasty with Emerge 3.5 x 12 mm balloon at two spots within the proximal and mid right coronary artery. This reduced the stenosis from 70% to less than 10%. The patient tolerated the procedure well. Angioplasty equipment was removed. Sheath was sutured in place and the patient was transferred to the floor for manual sheath removal. HEMODYNAMICS: Left ventricular end-diastolic pressure following coronary angiography was 14 mmHg. There is no significant pressure gradient on pullback across the aortic valve. Ascending aortic pressure 130/57 with a mean 80 mmHg. CORONARY ANGIOGRAPHY: Left main coronary artery does not exhibit significant obstructive disease. Left anterior descending artery has widely patent stent in its proximal midportion that is known to be Taxus 3 x 32 and Taxus 3 x 28 mm stents, respectively. The left circumflex artery and its first obtuse marginal branch are extensively stented and are chronically occluded. The angiogram for left circumflex artery is not any different from one done in 2017. The right coronary artery is extensively stented right up to its ostium and was exhibiting 70% stenosis in its very proximal and proximal to mid portions. To this, successful balloon angioplasty was carried out that is described above and this reduced the stenosis to less than 10%. The rest of coronary artery has diffuse moderate disease with stenosis of approximately 40% to 50%. LEFT VENTRICULAR ANGIOGRAPHY: Left ventricular angiography was carried out in the right anterior oblique projection. Global left ventricular systolic function is well preserved. Left ventricular ejection fraction approximately 55%. There is mild posterobasal hypokinesis. CONCLUSIONS: 1. Coronary artery disease as detailed above. The left anterior descending artery has a patent stent in its proximal and mid portions (Taxus 3 x 32 and Taxus 3 x 28, respectively). The rest of the left anterior descending artery has diffuse moderate disease. Left circumflex artery is extensively stented including its first obtuse marginal branch, and is chronically occluded (unchanged compared to 2017). The right coronary artery is extensively stented and had 70% proximal stenoses to which successful balloon angioplasty was carried out with reduction of stenosis from 70% to less than 10%. The rest of the right coronary artery has diffuse moderate disease with stenosis of approximately 40%. Right coronary artery is dominant. 2. Well preserved global left ventricular systolic function with ejection fraction approximately 55% and with mild posterobasal hypokinesis. 3. Mild elevation of left ventricular end-diastolic pressure. DISCUSSION AND RECOMMENDATIONS: We are continuing her antiplatelet therapy. She has again been advised to quit smoking immediately and completely. She is on therapy with statins and beta blockers that is being continued. Job ID: [id number] DocumentID: [id number] Dictated Date: 09/26/2019 09:16:28 Editor Newspaper Date: 09/26/2019 12:10:52 Dictated By: KEN HUDDLESTON MD, MA, FACP, FACC,
[2019-09-26] MEDS ORDERED: HYDROcodone/APAP 10 MG/325 MG (LORTAB) TAB PO PRN (12:30)
[2019-09-26] MEDS ORDERED: POLYETHYLENE GLYCOL 17 GM (MIRALAX) PACK PO PRN (12:30)
--- NOTE | 2019-09-26 20:35 | NUR ---
CALLED DR. HUDDLESTON AND INFORMED HIM THAT PATIENT'S HEART RATE WAS IN THE 50'S AND DROPPED INTO THE 40'S SLEEP AND THAT BLOOD PRESSURE WAS 134/60 AND THAT LOPRESSOR WAS NOT ADMINISTERED. RECEIVED ORDER TO RECHECK BP AT MIDNIGHT AND TO ADMINISTER 2100 LOPRESSOR AT THAT TIME IF BLOOD PRESSURE WAS ABOVE 150 AND HEART RATE ABOVE 50.
[2019-09-26] MEDS ORDERED: meTOprolol SUCCINATE 100 MG (TOPROL XL) TAB PO SCH (21:00)
[2019-09-27] VITALS: BP 135/69
[2019-09-27 04:00] VITALS: BP 164/79
[2019-09-27 05:31] LABS: BUN/CREATININE RATIO 16; CARBON DIOXIDE 21 MMOL/L (21-32); CHLORIDE 110 MMOL/L (98-107); CREATININE SERUM 0.76 MG/DL (0.60-1.30); GFR ESTIMATED > 60; SODIUM 141 MMOL/L (135-145)
[2019-09-27 05:32] LABS: CALCIUM 8.4 MG/DL (8.5-10.1); GLUCOSE 100 MG/DL (70-105)
[2019-09-27 05:36] LABS: HEMOGLOBIN 12.8 G/DL (11.5-16.0); WHITE BLOOD COUNT 8.5 10^3/uL (4.3-11.0)
[2019-09-27 05:37] LABS: MEAN PLATELET VOLUME 11.4 FL (7.4-10.4); RED CELL DISTRIBUTION WIDTH 13.4 % (10.0-14.5)
[2019-09-27 08:00] VITALS: BP 138/66
[2019-09-27] MEDS ORDERED: meTOprolol SUCCINATE 100 MG (TOPROL XL) TAB PO SCH (09:00)
[2019-09-27] MEDS ORDERED: ASPIRIN 81 MG CHEW (CHILDREN'S ASA) PO SCH (09:00)
[2019-09-27] MEDS ORDERED: NON-FORMULARY MEDICATION 1 EA EA (Metoprolol Succinate 200 MG) PO SCH (09:00)
[2019-09-27] MEDS ORDERED: CLOPIDOGREL 75 MG (PLAVIX) TABLET PO SCH (09:00)
--- NOTE | 2019-09-27 09:10 | Progress Note - Cardiology ---
Cardiology SOAP Progress Note Subjective: Feels well No cp or palp or groin or leg discomfort Chronic exertional shortness of breath, unchanged Wishes to go home Objective: I&O/Vital Signs 09/27/19 09/27/19 09/27/19 00:00 01:00 04:00 Temp 36.7 36.7 Pulse 52 50 50 Resp 16 18 B/P (MAP) 135/69 (91) 164/79 (107) Pulse Ox 95 96 O2 Delivery Room Air Room Air 09/27/19 00:00 Intake Total 500 ml Output Total 200 ml Balance 300 ml Weight (Pounds): 139 Weight (Ounces): 2.0 Weight (Calculated Kilograms): [id number] Groin site without hematoma: Yes Bruising: mild bruising Constitutional: AAO x 3, well-developed, well-nourished Respiratory: No accessory muscle use; other (good bilat air entry, prolonged exp) Cardiovascular: regular rate-rhythm, S1 and S2, systolic murmur (soft CAITIE at card base) Gastrointestional: No tender; soft; No guarding, No rebound; audible bowel sounds Extremities: No clubbing, No cyanosis, No significant edema Neurologic/Psychiatric: oriented x 3, other (moves all limbs equally) Skin: No rash on exposed areas, No ulcerations on exposed areas Results/Procedures: Labs Laboratory Tests 09/27/19 03:30: White Blood Count 8.5, Red Blood Count 3.75L, Hemoglobin 12.8, Hematocrit 38, Mean Corpuscular Volume 102H, Mean Corpuscular Hemoglobin 34, Mean Corpuscular Hemoglobin Concent 34, Red Cell Distribution Width 13.4, Platelet Count 181, Mean Platelet Volume 11.4H, Sodium Level 141, Potassium Level 4.0, Chloride Level 110H, Carbon Dioxide Level 21, Anion Gap 10, Blood Urea Nitrogen 12, Crea tinine 0.76, Estimat Glomerular Filtration Rate > 60, BUN/Creatinine Ratio 16, Glucose Level 100, Calcium Level 8.4L Laboratory Tests 09/26/19 07:05 09/27/19 03:30 A/P: Assessment: CAD. H/o extensive, staged, cor stenting ([facility], [place], [place]). Last cath 09/26/19: The left anterior descending artery has a patent stent in its proximal and mid portions (Taxus 3 x 32 and Taxus 3 x 28, respectively). The rest of the left anterior descending artery has diffuse moderate disease. Left circumflex artery is extensively stented including its first obtuse marginal branch, and is chronically occluded (unchanged compared to 2017). The right coronary artery is extensively stented and had 70% proximal stenoses to which successful balloon angioplasty was carried out with reduction of stenosis from 70% to less than 10%. The rest of the right coronary artery has diffuse moderate disease with stenosis of approximately 40%. Right coronary artery is dominant. Mild ischemic cardiomyopathy. Card cath of 09/26/19 showed ell preserved global left ventricular systolic function with ejection fraction approximately 55% and with mild posterobasal hypokinesis and mild elevation of left ventricular end-di astolic pressure Syncope/near syncope of undetermined etiology. Brief NSVT in April 2019. This is what led to card cath and cor intervention of 09/26/19. Tilt table study negative for neurocardiogenic syncope (09/19/19). Claudication, left leg, less than 1/2 block. Peripheral angiogram of Aug 29, 2019 showed ectatic abdominal aorta with atherosclerosis and calcification, but without significant aneurysm. Intact renal arteries on both sides. Mod atherosclerosis of the aortoiliac bifurcation with approx 50% ostial stenosis of the left common iliac artery. On the right side, there is a patent stent in the external iliac artery, but the entire distal right common iliac, right external iliac and the right common femoral arteries exhibit diffuse 60-60% stenosis. The right superficial femoral artery had diffuse mod disease and there is a 2 vessel runoff in the right leg. Ostial occlusion of the left superficial femoral artery with reconstitution via collaterals in its mid portion and with a 2 vessel runoff in the left leg. Her peripheral interventions have been by Dr Fierro at [facility]. Currently awaiting eval with Dr Fierro for bypass surgery to the L leg Symptomatic bradycardia, treated with dual chamber pacemaker insertion on 04/01/18 (and removal of ILR 04/01/18), functioning normally per interrogation of 09/15/19 [address] of abdomen on 11/21/13 (previously followed by Dr. Fierro) - Aorto sono of Jul 10, 2019 showed infrarenal AAA 3.7 cm Hyperlipidemia Carotid arterial disease previously followed by Dr. Fierro - Carotid u/s of February 18, 2018 showed 40% bilat carotid dz Chronic tobacco use Chronic obstructive pulmonary disease, followed and treated by pcp Hypertension Chronic migraine headaches Depression Plan: * I had a long and detailed discussion with her regarding her cath findings and intervention undertaken * Advised again to quit smoking immediately and completely * Advised compliance with meds * Advised outpt f/u * BB reduced because of sinus ludwin * Plavix added KEN HUDDLESTON MD FACP FACC CCDS Sep 27, 2019 09:10
[2019-09-27] MEDS ORDERED: meTOprolol SUCCINATE 100 MG (TOPROL XL) TAB PO ONE (09:15)
[2019-09-27] MEDS ORDERED: METO100T6 PO (09:21)
[2019-09-27] MEDS ORDERED: ASPI-999 PO (09:21)
[2019-09-27] MEDS ORDERED: CLOP75TA69 PO (09:21)
--- NOTE | 2019-09-27 09:22 | Discharge Inst-Post CATH ---
Discharge Inst-CATH/EP Post Cardiac Cath/EP D/C Inst Follow Up/Plan F/u with Dr Villalba in one month Keep previously scheduled apptt with Dr Fierro ACTIVITY * Go Home directly and rest. * Limit activity of the leg (or wrist if it was used) for 7 days including aerobics, swimming, jogging, bicycling, etc. * Restrict stair-climbing for 7 days if possible, if not, climb up with your non-cath leg, then bring together on the same step. * Avoid lifting, pushing, pulling or excessive movement of the affected extremity for 7 days. * Customary sexual activity may be resumed after 2 days-use caution not to use a position that strains or causes pain to the affected extremity. * No driving for 24 hours. * NO SMOKING. * Avoid straining for bowel movements for 7 days. * Gentle walking on level ground is allowed. * Returning to work will depend on the type of procedure and the results. Your doctor will discuss this with you. CALL YOUR DOCTOR FOR ANY OF THE FOLLOWING: *If bleeding from the puncture site occurs- Apply gentle pressure to site with clean cloth and call your doctor or EMS. * If a knot or lump forms under the skin, increases in size, or causes pain. * If bruising appears to be worsening or moving further down your leg instead of disappearing. * Temperature above 101 F. CARE OF YOUR GROIN INCISION; * Bruising or purple discoloration of the skin near the puncture site is common. * You may shower only, no bathtub bathing for 5 days. Be careful to avoid slipping as your leg may feel stiff. * If a closure device was used on your femoral artery, please see the attached guide regarding care of the device and your leg. * Leave dressing on FOR 24 hours. CARE OF YOUR WRIST INCISION; * Bruising or purple discoloration of the skin near the puncture site is common. * You may shower. * DO NOT submerge wrist. * Leave dressing on FOR 24 hours. KEN VILLALBA MD FAC FAC CCDS Sep 27, 2019 09:22
--- NOTE | 2019-09-27 09:23 | Discharge Inst-Cardiology ---
Discharge Inst-Cardiac Discharge Medications New Medications: Aspirin (Aspirin) 81 Mg Tab.chew 81 MG PO DAILY, #30 TAB 5 Refills Clopidogrel Bisulfate (Plavix) 75 Mg Tablet 75 MG PO DAILY, #60 TAB 5 Refills Metoprolol Succinate (Toprol Xl) 100 Mg Tab.er.24h 100 MG PO BID, #60 TAB 5 Refills Continued Medications: Atorvastatin Calcium (Atorvastatin Calcium) 40 Mg Tablet 40 MG PO DAILY, TAB Hydrocodone/Acetaminophen ([place] 10-325 Tablet) 1 Each Tablet 1 TAB PO Q6H PRN for PAIN-MODERATE (5-7), TAB Polyethylene Glycol 3350 (Miralax) 17 Gm Powd.pack 17 GM PO DAILY PRN for CONSTIPATION-2ND LINE, EACH Discontinued Medications: Aspirin (Aspirin EC) 81 Mg Tablet.dr 81 MG PO DAILY, TAB Metoprolol Succinate (Metoprolol Succinate) 200 Mg Tab.er.24h 200 MG PO DAILY, TAB Metoprolol Succinate (Metoprolol Succinate) 100 Mg Tab.er.24h 100 MG PO HS, TAB Patient Instructions Patient Instructions: No smoking Orders-Post D/C & Referrals Pneu Vac Indicated: Yes KEN HUDDLESTON MD FACP FAC CCDS Sep 27, 2019 09:23
[2019-09-28] MEDS ORDERED: meTOprolol SUCCINATE 100 MG (TOPROL XL) TAB PO SCH (09:00)
== END 2019-09-27 09:35 | disposition home or self-care (01) ==
LOC: CATH 06:31 → ICU 09:18 → CATH 09-27 09:35
PROVIDERS: ATTEND Internal Medicine Cardiovascular Disease
DX: I25.10 Atherosclerotic heart disease of native coronary artery without angina pectoris (principal); I25.5 Ischemic cardiomyopathy; R55 Syncope and collapse; I70.202 Unspecified atherosclerosis of native arteries of extremities, left leg; R00.1 Bradycardia, unspecified; I71.4 Abdominal aortic aneurysm, without rupture; E78.5 Hyperlipidemia, unspecified; I77.89 Other specified disorders of arteries and arterioles; F17.210 Nicotine dependence, cigarettes, uncomplicated; J44.9 Chronic obstructive pulmonary disease, unspecified; Z95.0 Presence of cardiac pacemaker; Z95.5 Presence of coronary angioplasty implant and graft; I10 Essential (primary) hypertension; G43.909 Migraine, unspecified, not intractable, without status migrainosus; Z79.899 Other long term (current) drug therapy; Z88.5 Allergy status to narcotic agent; Z88.0 Allergy status to penicillin; Z79.82 Long term (current) use of aspirin; F32.9 Major depressive disorder, single episode, unspecified; Z91.14 Patient's other noncompliance with medication regimen; Z11.2 Encounter for screening for other bacterial diseases
CPT/HCPCS: 36415; 80048; 80053; 80061; 85027; 85610; 85730; 87081; 93458

== ENCOUNTER → 2019-12-15 | Outpatient (CLI) | payer MEDICARE ==
[~2019-12-15] MED LIST changes: +ASPI-999 PO; +CLOP75TA69 PO; +METO100T6 PO; +MTP100TCR PO
[2019-12-15 09:08] LABS: BASOPHILS % (AUTO) 0 % (0-10); EOSINOPHILS # (AUTO) 0.1 10^3/uL (0.0-0.3); EOSINOPHILS % (AUTO) 1 % (0-10); HEMATOCRIT 44 % (35-52); HEMOGLOBIN 15.5 G/DL (11.5-16.0); LYMPHOCYTES # (AUTO) 2.7 X 10^3 (1.0-4.0); LYMPHOCYTES % (AUTO) 31 % (12-44); MEAN CORPUSCULAR HEMOGLOBIN 35 PG (25-34); MEAN CORPUSCULAR HGB CONC 36 G/DL (32-36); MEAN CORPUSCULAR VOLUME 99 FL (80-99); MEAN PLATELET VOLUME 10.2 FL (7.4-10.4); MONOCYTES # (AUTO) 0.7 X 10^3 (0.0-1.0); MONOCYTES % (AUTO) 8 % (0-12); NEUTROPHILS # (AUTO) 5.4 X 10^3 (1.8-7.8); NEUTROPHILS % (AUTO) 60 % (42-75); PLATELET COUNT 188 10^3/uL (130-400); RED CELL DISTRIBUTION WIDTH 13.9 % (10.0-14.5); WHITE BLOOD COUNT 8.9 10^3/uL (4.3-11.0)
[2019-12-15 09:14] LABS: BILIRUBIN,URINE NEGATIVE (NEGATIVE); CLARITY,URINE CLEAR; COLOR,URINE YELLOW; GLUCOSE, URINE (UA) NEGATIVE (NEGATIVE); KETONES,URINE NEGATIVE (NEGATIVE); LEUKOCYTE ESTERASE ,URINE NEGATIVE (NEGATIVE); NITRITE,URINE NEGATIVE (NEGATIVE); PROTEIN,URINE TRACE (NEGATIVE)
[2019-12-15 09:23] LABS: RBC,URINE RARE /HPF
[2019-12-15 09:24] LABS: BACTERIA,URINE FEW /HPF
[2019-12-15 09:28] LABS: ALANINE AMINOTRANSFERASE 13 U/L (0-55); ALBUMIN 4.2 GM/DL (3.2-4.5); ALKALINE PHOSPHATASE 99 U/L (40-136); BILIRUBIN,TOTAL 0.6 MG/DL (0.1-1.0); BUN/CREATININE RATIO 15; CALCIUM 9.3 MG/DL (8.5-10.1); CARBON DIOXIDE 22 MMOL/L (21-32); CHLORIDE 107 MMOL/L (98-107); CREATININE SERUM 0.84 MG/DL (0.60-1.30); GFR ESTIMATED > 60; GLUCOSE 99 MG/DL (70-105); POTASSIUM 4.1 MMOL/L (3.6-5.0); SODIUM 140 MMOL/L (135-145); TOTAL PROTEIN 8.1 GM/DL (6.4-8.2)
--- NOTE | 2019-12-15 09:47 | Diagnostic Imaging Report ---
INDICATION: Claudication symptoms. TECHNIQUE: Single view chest 9:18 AM. CORRELATION STUDY: 04/01/2018 FINDINGS: Left-sided pacemaker is present. Slight change in orientation of the generator pack. The heart size remains mildly enlarged with presence of coronary artery stents left superior heart border. Vasculature within normal limits. Probable calcified granulomas within both lung allen which are clear of infiltrate. IMPRESSION: 1. Cardiac enlargement without failure or otherwise acute findings of the chest. Dictated by: Dictated on workstation # [id number]
== END ==
LOC: CARD 08:55
PROVIDERS: ATTEND Thoracic Surgery (Cardiothoracic Vascular Surgery)
DX: Z01.818 Encounter for other preprocedural examination (principal); Z01.812 Encounter for preprocedural laboratory examination; I70.213 Atherosclerosis of native arteries of extremities with intermittent claudication, bilateral legs; I51.7 Cardiomegaly
CPT/HCPCS: 36415; 71045; 80053; 81000; 85025; 93005

== ENCOUNTER → 2020-01-12 | Outpatient (CLI) | payer MEDICARE ==
--- NOTE | 2020-01-12 09:42 | Diagnostic Imaging Report ---
INDICATION: Right leg pain. Patient status post left leg angioplasty 3 weeks ago. Grayscale, color-flow and duplex Doppler valuation right lower extremity arterial system was performed. Monophasic flow throughout the right lower extremity arterial system is seen. There is significant velocity elevation in the right common femoral artery reaching 445 cm/s. There are some dampened velocities throughout the right superficial femoral and popliteal arteries. Anterior tibial artery is visualized. There appears to be occlusion of the posterior tibial artery in the mid to distal aspect. Flow is seen within the dorsalis pedis. There is questionable communication between the common femoral artery and common femoral vein consistent with a fistula. No hematoma or pseudoaneurysm is detected. IMPRESSION: 1. High-grade stenosis right common femoral artery. 2. Occlusion at the level of the mid to distal right posterior tibial artery. There is flow within the dorsalis pedis. 3. 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 No pseudoaneurysm or hematoma is detected. Dictated by: Dictated on workstation # [id number]
== END ==
LOC: RAD 07:45
PROVIDERS: ATTEND Family Medicine
DX: I70.201 Unspecified atherosclerosis of native arteries of extremities, right leg (principal)
CPT/HCPCS: 93926

== ENCOUNTER → 2020-03-26 | Outpatient (CLI) | payer MEDICARE ==
[~2020-03-26] MED LIST changes: +HOLD METFORMIN - RECEIVED CONTRAST 20 ML VIAL IV SCH; +IOHEXOL 350 MG/ML 100 ML (OMNIPAQUE 350) VIAL IV ONE; +NS 100 ML (IVPB) BAG IV ONE
[2020-03-26 07:29] LABS: ALANINE AMINOTRANSFERASE 14 U/L (0-55); ALBUMIN 4.1 GM/DL (3.2-4.5); ALKALINE PHOSPHATASE 106 U/L (40-136); BILIRUBIN,TOTAL 0.6 MG/DL (0.1-1.0); BUN/CREATININE RATIO 16; CALCIUM 9.2 MG/DL (8.5-10.1); CARBON DIOXIDE 20 MMOL/L (21-32); CHLORIDE 107 MMOL/L (98-107); GFR ESTIMATED > 60; GLUCOSE 106 MG/DL (70-105); POTASSIUM 3.8 MMOL/L (3.6-5.0); SODIUM 140 MMOL/L (135-145); TOTAL PROTEIN 7.9 GM/DL (6.4-8.2)
--- NOTE | 2020-03-26 08:45 | Diagnostic Imaging Report ---
PROCEDURE: CT abdomen and pelvis with contrast. TECHNIQUE: Multiple contiguous axial images were obtained through the abdomen and pelvis after administration of intravenous contrast. Auto Exposure Controls were utilized during the CT exam to meet ALARA standards for radiation dose reduction. INDICATION: Left-sided pain 2-3 months' duration. COMPARISON: 03/31/2017. FINDINGS: Mixed soft and hard plaque throughout the abdominal aorta redemonstrated with mild increased size of the infrarenal abdominal aortic aneurysm today measuring 3.6 x 3.2 cm, previously 3.4 x 2.8 cm. A large amount of peripheral mural soft thrombus within the aneurysmal sac is present without significant narrowing of the opacified lumen. There is extensive plaque throughout the celiac, superior mesenteric and inferior mesenteric arteries without discrete segmental occlusion and there were no findings suggestive of acute solid or hollow visceral end organ involvement by ischemia. No dissection. No vessel rupture of 50-60% stenosis of the proximal right external iliac artery likely mildly increased. There is opacification of the bilateral proximal SFAs and common femorals. The gallbladder is surgically absent. Liver, spleen, adrenals and pancreas all unremarkable. There are a few small renal cortical cysts with no hydronephrosis. There are bilateral renal arterial ostial calcified plaques without appreciable hemodynamically significant stenosis. There is a suggestion of mild rectosigmoidal constipation without overt obstruction or brenda impaction. No small bowel dilatation. No perienteric or pericolonic edema. There was no diverticulitis or appendicitis. IMPRESSION: 1. Severe atherosclerotic disease with mild interval enlargement of the unruptured atheromatous infrarenal abdominal aortic aneurysm. 2. No findings of visceral end organ ischemia or acute appearing pathology. 3. Equivocal findings for mild distal constipation without brenda impaction or obstruction. Dictated by: Dictated on workstation # [id number]
== END ==
LOC: RAD 06:50
PROVIDERS: ATTEND Family Medicine
DX: R10.32 Left lower quadrant pain (principal); I71.4 Abdominal aortic aneurysm, without rupture; I25.10 Atherosclerotic heart disease of native coronary artery without angina pectoris; K59.00 Constipation, unspecified
CPT/HCPCS: 36415; 74177; 80053

== ENCOUNTER → 2020-04-08 | Outpatient (CLI) | payer MEDICARE ==
[~2020-04-08] MED LIST changes: -HOLD METFORMIN - RECEIVED CONTRAST 20 ML VIAL IV SCH; -IOHEXOL 350 MG/ML 100 ML (OMNIPAQUE 350) VIAL IV ONE; -NS 100 ML (IVPB) BAG IV ONE
--- NOTE | 2020-04-08 11:53 | Diagnostic Imaging Report ---
INDICATION: Abdominal aortic aneurysm. Correlation with a recent CT from 03/26/2020. Proximal abdominal aorta measures 1.9 cm AP x 1.9 cm transverse. Midabdominal aorta measures 2.2 cm AP x 2.3 cm transverse. Distal abdominal aorta measures approximately 2.8 cm AP x 3.2 cm transverse. The right iliac measures 0.7 x 1.1 cm. Left iliac is 0.8 x 1.2 cm. IMPRESSION: Infrarenal abdominal aortic aneurysm, as described. Dictated by: Dictated on workstation # [id number]
== END ==
LOC: RAD 07:31
PROVIDERS: ATTEND Nurse Practitioner Family
DX: I71.4 Abdominal aortic aneurysm, without rupture (principal)
CPT/HCPCS: 76775

== ENCOUNTER → 2020-04-09 | Outpatient (CLI) | payer MEDICARE | LOC: CARD 12:54 | PROVIDERS: ATTEND Nurse Practitioner Family | DX: I34.0 Nonrheumatic mitral (valve) insufficiency (principal); I71.4 Abdominal aortic aneurysm, without rupture | CPT/HCPCS: 93306 ==

== ENCOUNTER 2020-08-21 11:16 | Emergency (ER) | payer MEDICARE ==
[~2020-08-21] VITALS: Ht 152.4 cm; Wt 61.8 kg
[~2020-08-21 11:16] MED LIST changes: -ALPR0.254 PO; +AMLO-251 PO; -AMLO10TA7 PO; +ASPI-1238 PO; -ASPI-983 PO
--- NOTE | 2020-08-21 11:44 | ED Chest Pain ---
General Chief Complaint: Chest Pain Stated Complaint: CP Source: patient Exam Limitations: no limitations History of Present Illness Date Seen by Provider: Aug 21, 2020 Time Seen by Provider: 11:30 Initial Comments Patient is a 75-year-old female who presents to the emergency room today with a chief complaint of brief substernal chest pressure radiating into both arms as well as palpitations and dizziness. Patient states that she felt her heart "flopping" and points to her left flank. Patient states that this is not an unusual sensation for her that she has felt this many times in the past. She recently saw her replanting machine crew Dr. Villalba [address]. Black is well aware of her "dizzy spells". She has had multiple evaluations. Patient has a pacemaker placed in 2018. Patient states her chest pain is gone and it was brief. No associated symptoms of sweating, shortness of breath or nausea. Patient has a history of 24 cardiac stents placed in 2 peripheral stents. She also has a known abdominal aortic aneurysm. Unknown what the size of this aneurysm is. Patient is very comfortable while lying in the bed and states that she gets dizzy with any type of position change especially laying down to standing and turning her head. She is asymptomatic currently. No recent illnesses. All other ROS reviewed and negative except as stated Timing/Duration: 1-3 hours Severity/Quality: mild Location: substernal Radiation: arms Activities at Onset: activity ASA po MULTIGRAPH OPERATOR: Yes NTG SL MULTIGRAPH OPERATOR: No Allergies and Home Medications Allergies Coded Allergies: morphine (Verified Allergy, Intermediate, Nausea, 08/29/19) "projectile vomiting" Penicillins (Verified Allergy, Mild, RASH, 04/01/18) codeine (Unverified Allergy, Mild, ITCH, 01/30/14) Home Medications Aspirin 81 Mg Tab.chew, 81 MG PO DAILY Prescribed by: KEN VILLALBA on 09/27/19920 Atorvastatin Calcium 40 Mg Tablet, 40 MG PO DAILY, (Reported) Clopidogrel Bisulfate 75 Mg Tablet, 75 MG PO DAILY Prescribed by: KEN VILLALBA on 09/27/19920 Hydrocodone/Acetaminophen 1 Each Tablet, 1 TAB PO Q6H PRN for PAIN-MODERATE (5- 7), (Reported) Metoprolol Succinate 100 Mg Tab.er.24h, 100 MG PO BID Prescribed by: KEN VILLALBA on 12/18/19 0921 Polyethylene Glycol 3350 17 Gm Powd.pack, 17 GM PO DAILY PRN for CONSTIPATION- 2ND LINE, (Reported) Patient Home Medication List Home Medication List Reviewed: Yes Review of Systems Review of Systems Constitutional: no symptoms reported EENTM: No Symptoms Reported Respiratory: No Symptoms Reported Cardiovascular: Chest Pain, Irregular Heart Rate, Palpitations Gastrointestinal: No Symptoms Reported Genitourinary: No Symptoms Reported Musculoskeletal: no symptoms reported Skin: no symptoms reported Psychiatric/Neurological: No Symptoms Reported All Other Systems Reviewed Negative Unless Noted: Yes Past Dvjwmwc-Lbxlji-Npzrca Hx Patient Social History Alcohol Beverage of Choice: Beer Type Used: Cigarettes 2nd Hand Smoke Exposure: No Recent Hopitalizations: No Seasonal Allergies Seasonal Allergies: No Past Medical History Surgeries: Yes (MULT STENTS THRU-OUT BODY, NECK SURGERY) Abdominal, Section, Coronary Stent, Gallbladder, Hysterectomy Respiratory: Yes Pneumonia, COPD Currently Using CPAP: No Currently Using BIPAP: No Cardiac: Yes ([place] X8, HEART STENTS X29) Coronary Artery Disease, Heart Attack, Hypertension Neurological: No Reproductive Disorders: No Genitourinary: Yes (UTI) Gastrointestinal: Yes Diverticulosis, Hemorrhoids, Ulcer Musculoskeletal: Yes Arthritis, Fibromyalgia Endocrine: No HEENT: No Cancer: Yes Colon Did You Recieve Any Treatments: Yes What Type of Treatment Did You: Chemotherapy, Radiation, Surgical Intervention Psychosocial: No Integumentary: No Blood Disorders: No Adverse Reaction/Blood Tranf: No Family Medical History Heart Disease, Cancer Physical Exam Vital Signs Vital Signs - First Documented 08/21/20 11:17 Temp 35.4 Pulse 68 Resp 18 B/P (MAP) 170/89 (116) Pulse Ox 95 O2 Delivery Room Air Capillary Refill : Height, Weight, BMI Height: 5'0.00" Weight: 139lbs. 2.0oz. 63.768861bv; 28.13 BMI Method:Stated General Appearance: No Apparent Distress, WD/WN HEENT: PERRL/EOMI, TMs Normal Neck: Full Range of Motion Respiratory: Lungs Clear, Normal Breath Sounds, No Accessory Muscle Use, No Respiratory Distress Cardiovascular: Regular Rate, Rhythm, No Murmur, Normal Peripheral Pulses Gastrointestinal: Normal Bowel Sounds, No Pulsatile Mass, Non Tender, Soft Extremity: Normal Capillary Refill, Normal Inspection, Normal Range of Motion, Non Tender, No Calf Tenderness Neurologic/Psychiatric: Alert, Oriented x3, No Motor/Sensory Deficits, Normal Mood/Affect Skin: Normal Color, Warm/Dry Progress/Results/Core Measures Results/Orders Lab Results Laboratory Tests Test 08/21/20 11:21 Range/Units White Blood Count 9.7 4.3-11.0 10^3/uL Red Blood Count 4.17 3.80-5.11 10^6/uL Hemoglobin 14.4 11.5-16.0 g/dL Hematocrit 43 35-52 % Mean Corpuscular Volume 103 H 80-99 fL Mean Corpuscular Hemoglobin 35 H 25-34 pg Mean Corpuscular Hemoglobin Concent 34 32-36 g/dL Red Cell Distribution Width 14.1 10.0-14.5 % Platelet Count 181 130-400 10^3/uL Mean Platelet Volume 11.1 9.0-12.2 fL Immature Granulocyte % (Auto) 0 % Neutrophils (%) (Auto) 62 42-75 % Lymphocytes (%) (Auto) 31 12-44 % Monocytes (%) (Auto) 7 0-12 % Eosinophils (%) (Auto) 1 0-10 % Basophils (%) (Auto) 1 0-10 % Neutrophils # (Auto) 6.0 1.8-7.8 10^3/uL Lymphocytes # (Auto) 2.9 1.0-4.0 10^3/uL Monocytes # (Auto) 0.6 0.0-1.0 10^3/uL Eosinophils # (Auto) 0.1 0.0-0.3 10^3/uL Basophils # (Auto) 0.1 0.0-0.1 10^3/uL Immature Granulocyte # (Auto) 0.0 0.0-0.1 10^3/uL Sodium Level 140 135-145 MMOL/L Potassium Level 4.1 3.6-5.0 MMOL/L Chloride Level 108 H 98-107 MMOL/L Carbon Dioxide Level 21 21-32 MMOL/L Anion Gap 11 5-14 MMOL/L Blood Urea Nitrogen 11 7-18 MG/DL Creatinine 0.89 0.60-1.30 MG/DL Estimat Glomerular Filtration Rate > 60 BUN/Creatinine Ratio 12 Glucose Level 127 H 70-105 MG/DL Calcium Level 8.6 8.5-10.1 MG/DL Creatine Kinase MB 0.8 <6.6 NG/ML Troponin I < 0.028 <0.028 NG/ML My Orders Orders - CARLEEN VENEGAS MD Cbc With Automated Diff (08/21/20 11:47) Basic Metabolic Panel (08/21/20 11:47) Creatine Kinase Mb (08/21/20 11:47) Troponin I (08/21/20 11:47) Ekg Tracing (08/21/20 11:47) Ed Iv/Invasive Line Start (08/21/20 11:47) Chest 1 View, Ap/Pa Only (08/21/20 11:47) Vital Signs/I&O 08/21/20 11:17 Temp 35.4 Pulse 68 Resp 18 B/P (MAP) 170/89 (116) Pulse Ox 95 O2 Delivery Room Air Progress Progress Note : Time: 11:42 Progress Note 75-year-old female presents to the emergency room with a chief complaint of pa lpitations and mild chest pain. Evaluation today includes a physical exam, EKG, CBC, basic metabolic panel and cardiac enzyme profile. Patient is comfortable resting in the bed. Onset of symptoms was approximately 930. Patient feels back to baseline at this time. She has close follow-up continuously with her replanting machine crew. She recently had her metoprolol increased to 300 mg a day. Patient is in a normal sinus rhythm at 60 bpm currently no signs of ectopy. No ST segment elevation or depression, 1236 Patient reevaluated, resting comfortably throughout her stay here in the emergency department without any return of chest discomfort or palpitations. Heart rate has been steady in the 50s and 60s. Patient's blood pressure is reassuring. Her lab work has been reviewed CBC, basic metabolic panel, cardiac enzymes. All of these are falling within acceptable range. Troponin is unde tectable. I did have a long conversation with the patient regarding the inability for our facility to interrogate her pacemaker. She is comfortable that we have not been able to do this. She also does not wish to wait around for a second set of cardiac enzymes. I discussed with her the fact that she did have chest pain and that her presentation and the laboratory evaluation might not be adequate to rule out an acute coronary syndrome. She verbalizes understanding of this. The patient states that this chest discomfort was not chest pain that was similar to prior cardiac events. Patient is comfortable and again insisting that she be discharged. I reviewed the discharge plan with the patient she is comfortable with it. She will follow up with Dr. Black, her replanting machine crew. All questions are sought and answered and she is stable for discharge. Departure Impression Primary Impression: Dizziness Additional Impression: Chest pain Qualified Codes: R07.9 - Chest pain, unspecified Disposition: 01 HOME, SELF-CARE Condition: Stable Departure-Patient Inst. Decision time for Depature: 12:38 Referrals: IONA HERBERT MD (PCP/Family) Primary Care Physician Patient Instructions: Chest Pain (DC), Vertigo (a Type of Dizziness) Add. Discharge Instructions: Be sure and follow-up with your replanting machine crew as well as your primary care physician. Continue taking your daily medications as prescribed. Please return to the emergency department for any worsening symptoms of dizziness, chest pain, shortness of breath or other emergent, concerning symptoms. CARLEEN VENEGAS MD Aug 21, 2020 11:44
[2020-08-21 11:58] LABS: CHLORIDE 108 MMOL/L (98-107); POTASSIUM 4.1 MMOL/L (3.6-5.0); SODIUM 140 MMOL/L (135-145)
[2020-08-21 11:59] LABS: CALCIUM 8.6 MG/DL (8.5-10.1)
[2020-08-21 12:00] LABS: BASOPHILS # (AUTO) 0.1 10^3/uL (0.0-0.1); BASOPHILS % (AUTO) 1 % (0-10); EOSINOPHILS # (AUTO) 0.1 10^3/uL (0.0-0.3); EOSINOPHILS % (AUTO) 1 % (0-10); GLUCOSE 127 MG/DL (70-105); HEMATOCRIT 43 % (35-52); HEMOGLOBIN 14.4 g/dL (11.5-16.0); LYMPHOCYTES # (AUTO) 2.9 10^3/uL (1.0-4.0); LYMPHOCYTES % (AUTO) 31 % (12-44); MEAN CORPUSCULAR HEMOGLOBIN 35 pg (25-34); MEAN CORPUSCULAR HGB CONC 34 g/dL (32-36); MEAN CORPUSCULAR VOLUME 103 fL (80-99); MEAN PLATELET VOLUME 11.1 fL (9.0-12.2); MONOCYTES # (AUTO) 0.6 10^3/uL (0.0-1.0); MONOCYTES % (AUTO) 7 % (0-12); NEUTROPHILS % (AUTO) 62 % (42-75); PLATELET COUNT 181 10^3/uL (130-400); WHITE BLOOD COUNT 9.7 10^3/uL (4.3-11.0)
[2020-08-21 12:01] LABS: CARBON DIOXIDE 21 MMOL/L (21-32)
[2020-08-21 12:03] LABS: CREATININE SERUM 0.89 MG/DL (0.60-1.30); GFR ESTIMATED > 60
[2020-08-21 12:04] LABS: BUN/CREATININE RATIO 12
[2020-08-21 12:12] LABS: CREATINE KINASE MB 0.8 NG/ML (<6.6)
--- NOTE | 2020-08-21 12:43 | NUR ---
CALLED [facility] TO COME GET PATINT. WILL COME GET PATIENT WILL CALL WHEN HERE.
[2020-08-21 12:45] VITALS: BP 179/83
--- NOTE | 2020-08-21 13:09 | Diagnostic Imaging Report ---
INDICATION: Chest pain. Time of exam 12:27 p.m. Correlation is made with prior chest from 12/15/2019. Heart is enlarged but stable. Dual lead left subclavian cardiac pacemaker remains in place with lead tips in the region of the right atrium and right ventricle. Calcified nodules in both lungs appear stable. No infiltrate is identified. There is no evidence of congestive failure. No effusion or pneumothorax is identified. IMPRESSION: No acute cardiopulmonary process is detected. Dictated by: Dictated on workstation # [id number]
--- NOTE | 2020-08-21 13:19 | NUR ---
[facility] CALLED AND STATED IT WILL BE [facility] 20 MIN BEFORE THEY COME GET HER.
--- NOTE | 2020-08-21 13:23 | NUR ---
[facility] HERE TO GET PATIENT.
== END 2020-08-21 12:45 | disposition home or self-care (01) ==
LOC: EDUNIT# 11:16 → ER 11:17
DX: R07.2 Precordial pain (principal); R42 Dizziness and giddiness; R00.2 Palpitations; M79.601 Pain in right arm; M79.602 Pain in left arm; I10 Essential (primary) hypertension; I25.2 Old myocardial infarction; I25.10 Atherosclerotic heart disease of native coronary artery without angina pectoris; Z85.038 Personal history of other malignant neoplasm of large intestine; Z87.19 Personal history of other diseases of the digestive system; Z95.5 Presence of coronary angioplasty implant and graft; Z95.9 Presence of cardiac and vascular implant and graft, unspecified; Z88.0 Allergy status to penicillin; Z88.5 Allergy status to narcotic agent; Z79.82 Long term (current) use of aspirin; Z79.02 Long term (current) use of antithrombotics/antiplatelets
CPT/HCPCS: 36415; 71045; 80048; 82553; 84484; 85025; 93005

== ENCOUNTER 2021-02-17 08:36 | Emergency (ER) | payer MEDICARE ==
[~2021-02-17] VITALS: Ht 152 cm; Wt 63.0 kg
[~2021-02-17 08:36] MED LIST changes: -CIPR500T4 PO; +CIPR500T5 PO; +ESCI20TA39 PO; -ESCI20TA45 PO
[2021-02-17] MEDS ORDERED: LABETALOL HCL 20 MG/4 ML VIAL ONE (08:49)
[2021-02-17] MEDS ORDERED: LABETALOL HCL 20 MG/4 ML VIAL IV ONE (09:00)
[2021-02-17 09:11] LABS: BASOPHILS % (AUTO) 0 % (0-10); EOSINOPHILS # (AUTO) 0.1 10^3/uL (0.0-0.3); EOSINOPHILS % (AUTO) 1 % (0-10); HEMATOCRIT 52 % (35-52); HEMOGLOBIN 17.5 g/dL (11.5-16.0); LYMPHOCYTES # (AUTO) 2.3 10^3/uL (1.0-4.0); LYMPHOCYTES % (AUTO) 26 % (12-44); MEAN CORPUSCULAR HEMOGLOBIN 35 pg (25-34); MEAN CORPUSCULAR HGB CONC 34 g/dL (32-36); MEAN CORPUSCULAR VOLUME 104 fL (80-99); MEAN PLATELET VOLUME 10.4 fL (9.0-12.2); MONOCYTES # (AUTO) 0.6 10^3/uL (0.0-1.0); MONOCYTES % (AUTO) 7 % (0-12); NEUTROPHILS # (AUTO) 5.9 10^3/uL (1.8-7.8); NEUTROPHILS % (AUTO) 66 % (42-75); PLATELET COUNT 162 10^3/uL (130-400); WHITE BLOOD COUNT 8.9 10^3/uL (4.3-11.0)
--- NOTE | 2021-02-17 09:18 | Diagnostic Imaging Report ---
INDICATION: Dizziness and weakness. TIME OF EXAM: 9:06 AM. COMPARISON: Correlation is made with the prior chest from 08/21/2020. FINDINGS: The heart is enlarged but stable. There is a dual-lead cardiac pacemaker. There are some calcified granulomas in the right lung. No infiltrates are seen. There is no effusion or pneumothorax. IMPRESSION: Stable chest. No acute feature is identified. Dictated by: Dictated on workstation # [id number]
--- NOTE | 2021-02-17 09:28 | ED General ---
General Stated Complaint: HTN Source of Information: Patient, EMS Exam Limitations: No Limitations History of Present Illness Date Seen by Provider: February 17, 2021 Time Seen by Provider: 08:40 Initial Comments Patient is a 75-year-old female who presents to the emergency department today with with a chief complaint of dizziness, weakness, nausea and a feeling of "my heartbeat in my abdomen". Patient states that she had onset of symptoms in the last 24 hours. Per EMS her blood pressure was very high prior to arrival. 240s over 150s. Patient has a known AAA. She is followed by Dr. Fierro at [facility] in [facility]. Patient denies any chest pain or shortness of breath. She denies recent illnesses such as fevers, chills cough or congestion. No discrete abdominal pain. No GI or complaints. Patient is chronically anticoagulated on Coumadin. She has a pacemaker however she was told that it quit pacing about 2 months ago and she has not had a follow-up appointment since. All other review of systems reviewed and negative except as stated. Timing/Duration: 24 Hours Severity: Moderate Associated Systoms: Malaise, Nausea/Vomiting, Weakness Allergies and Home Medications Allergies Coded Allergies: morphine (Verified Allergy, Intermediate, Nausea, 08/29/19) "projectile vomiting" Penicillins (Verified Allergy, Mild, RASH, 04/01/18) codeine (Unverified Allergy, Mild, ITCH, 01/30/14) Home Medications Aspirin 81 Mg Tab.chew, 81 MG PO DAILY Prescribed by: KEN VILLALBA on 09/27/19920 Atorvastatin Calcium 40 Mg Tablet, 40 MG PO DAILY, (Reported) Clopidogrel Bisulfate 75 Mg Tablet, 75 MG PO DAILY Prescribed by: KEN VILLALBA on 09/27/19920 Hydrocodone/Acetaminophen 1 Each Tablet, 1 TAB PO Q6H PRN for PAIN-MODERATE (5-7), (Reported) Metoprolol Succinate 100 Mg Tab.er.24h, 100 MG PO BID Prescribed by: KEN VILLALBA on 09/27/19920 Polyethylene Glycol 3350 17 Gm Powd.pack, 17 GM PO DAILY PRN for CONSTIPATION-2 ND LINE, (Reported) Patient Home Medication List Home Medication List Reviewed: Yes Review of Systems Review of Systems Constitutional: see HPI EENTM: no symptoms reported Respiratory: no symptoms reported Cardiovascular: no symptoms reported Gastrointestinal: nausea, other (Abdominal discomfort) Genitourinary: no symptoms reported : No Musculoskeletal: no symptoms reported; No back pain Skin: no symptoms reported All Other Systems Reviewed Negative Unless Noted: Yes Past Gynvfif-Kxtkwb-Vcocdg Hx Patient Social History Alcohol Beverage of Choice: Beer Type Used: Cigarettes 2nd Hand Smoke Exposure: No Recent Hopitalizations: No Seasonal Allergies Seasonal Allergies: No Past Medical History Surgeries: Yes (MULT STENTS THRU-OUT BODY, NECK SURGERY) Abdominal, Section, Coronary Stent, Gallbladder, Hysterectomy Respiratory: Yes Pneumonia, COPD Currently Using CPAP: No Currently Using BIPAP: No Cardiac: Yes (VA X8, HEART STENTS X29) Coronary Artery Disease, Heart Attack, Hypertension Neurological: No Reproductive Disorders: No Genitourinary: Yes (UTI) Gastrointestinal: Yes Diverticulosis, Hemorrhoids, Ulcer Musculoskeletal: Yes Arthritis, Fibromyalgia Endocrine: No HEENT: No Cancer: Yes Colon Did You Recieve Any Treatments: Yes What Type of Treatment Did You: Chemotherapy, Radiation, Surgical Intervention Psychosocial: No Integumentary: No Blood Disorders: No Adverse Reaction/Blood Tranf: No Family Medical History Heart Disease, Cancer Physical Exam Vital Signs Vital Signs - First Documented 02/17/21 08:36 Temp 36.2 Pulse 87 Resp 24 B/P (MAP) 236/145 (175) Pulse Ox 94 Capillary Refill : Height, Weight, BMI Height: 5'0.00" Weight: 139lbs. 2.0oz. 63.215350gp; 26.00 BMI Method:Stated General Appearance: No Apparent Distress, WD/WN Eyes: Bilateral Eye Normal Inspection, Bilateral Eye PERRL, Bilateral Eye EOMI HEENT: PERRL/EOMI Neck: Normal Inspection, Non Tender, Supple Respiratory: Lungs Clear, Normal Breath Sounds, No Accessory Muscle Use, No Respiratory Distress Cardiovascular: Regular Rate, Rhythm, No Murmur Gastrointestinal: No Pulsatile Mass, Non Tender, Soft, Tenderness (mid abdominal tenderness to palpation) Extremity: Normal Inspection, Normal Range of Motion, Non Tender, No Calf Tenderness Neurologic/Psychiatric: Alert, Oriented x3, No Motor/Sensory Deficits Skin: Warm/Dry, Other (flushed) Progress/Results/Core Measures Suspected Sepsis SIRS Temperature: Pulse: Respiratory Rate: Laboratory Tests 02/17/21 09:04: White Blood Count 8.9 Blood Pressure / Mean: Laboratory Tests 02/17/21 09:04: Creatinine 0.91, INR Comment 1.0, Platelet Count 162, Total Bilirubin 0.8 Results/Orders Lab Results Laboratory Tests Test 02/17/21 09:04 Range/Units White Blood Count 8.9 4.3-11.0 10^3/uL Red Blood Count 5.03 3.80-5.11 10^6/uL Hemoglobin 17.5 H 11.5-16.0 g/dL Hematocrit 52 35-52 % Mean Corpuscular Volume 104 H 80-99 fL Mean Corpuscular Hemoglobin 35 H 25-34 pg Mean Corpuscular Hemoglobin Concent 34 32-36 g/dL Red Cell Distribution Width 13.8 10.0-14.5 % Platelet Count 162 130-400 10^3/uL Mean Platelet Volume 10.4 9.0-12.2 fL Immature Granulocyte % (Auto) 0 % Neutrophils (%) (Auto) 66 42-75 % Lymphocytes (%) (Auto) 26 12-44 % Monocytes (%) (Auto) 7 0-12 % Eosinophils (%) (Auto) 1 0-10 % Basophils (%) (Auto) 0 0-10 % Neutrophils # (Auto) 5.9 1.8-7.8 10^3/uL Lymphocytes # (Auto) 2.3 1.0-4.0 10^3/uL Monocytes # (Auto) 0.6 0.0-1.0 10^3/uL Eosinophils # (Auto) 0.1 0.0-0.3 10^3/uL Basophils # (Auto) 0.0 0.0-0.1 10^3/uL Immature Granulocyte # (Auto) 0.0 0.0-0.1 10^3/uL Prothrombin Time 13.5 12.2-14.7 SEC INR Comment 1.0 0.8-1.4 Sodium Level 139 135-145 MMOL/L Potassium Level 3.9 3.6-5.0 MMOL/L Chloride Level 102 98-107 MMOL/L Carbon Dioxide Level 25 21-32 MMOL/L Anion Gap 12 5-14 MMOL/L Blood Urea Nitrogen 11 7-18 MG/DL Creatinine 0.91 0.60-1.30 MG/DL Estimat Glomerular Filtration Rate 60 BUN/Creatinine Ratio 12 Glucose Level 102 70-105 MG/DL Calcium Level 9.0 8.5-10.1 MG/DL Corrected Calcium 9.0 8.5-10.1 MG/DL Total Bilirubin 0.8 0.1-1.0 MG/DL Aspartate Amino Transf (AST/SGOT) 20 5-34 U/L Alanine Aminotransferase (ALT/SGPT) 14 0-55 U/L Alkaline Phosphatase 110 40-136 U/L Total Creatine Kinase 26 L 29-168 U/L Creatine Kinase MB 0.9 <6.6 NG/ML Troponin I < 0.028 <0.028 NG/ML Total Protein 7.8 6.4-8.2 GM/DL Albumin 4.0 3.2-4.5 GM/DL My Orders Orders - CARLEEN VENEGAS MD Labetalol Injection (Normodyne Injection (02/17/21 09:00) Labetalol Injection (Normodyne Injection (02/17/21 08:49) Ed Iv/Invasive Line Start (02/17/21 08:58) Cbc With Automated Diff (02/17/21 08:58) Comprehensive Metabolic Panel (02/17/21 08:58) Protime With Inr (02/17/21 08:58) Chest 1 View, Ap/Pa Only (02/17/21 08:58) Ekg Tracing (02/17/21 08:58) Type And Screen (02/17/21 08:58) Creatine Kinase (02/17/21 08:58) Creatine Kinase Mb (02/17/21 08:58) Troponin I (02/17/21 08:58) Ct Angio Abdomen W (02/17/21 10:45) Iohexol Injection (Omnipaque 350 Mg/Ml 1 (02/17/21 11:00) Received Contrast (Hold Metformin- Contr (02/17/21 11:00) Sodium Chloride Flush (Catheter Flush Sy (02/17/21 11:00) Ns (Ivpb) (Sodium Chloride 0.9% Ivpb Bag (02/17/21 11:00) Medications Given in ED Current Medications Medications Dose Ordered Sig/Ha Route Start Time Stop Time Status Last Admin Dose Admin Iohexol 100 ml ONCE ONCE IV 02/17/21 11:00 02/17/21 11:01 DC 02/17/21 11:40 85 ML Labetalol HCl 20 mg ONCE ONCE IV 02/17/21 09:00 02/17/21 09:01 DC 02/17/21 09:01 20 MG Sodium Chloride 10 ml NEEDED PRN IV 02/17/21 11:00 02/17/21 13:26 DC 02/17/21 11:40 10 ML Sodium Chloride 100 ml ONCE ONCE IV 02/17/21 11:00 02/17/21 11:01 DC 02/17/21 11:40 80 ML Vital Signs/I&O 02/17/21 02/17/21 08:36 13:11 Temp 36.2 Pulse 87 51 Resp 24 18 B/P (MAP) 236/145 (175) 155/76 (175) Pulse Ox 94 94 Capillary Refill : Progress Note : Time: 11:03 Progress Note Patient is feeling better still has a little abdominal discomfort. Pending CTA abdomen to evaluate AAA. Otherwise labs are all within normal limits. Chest x- ray is clear. 1306 Patient CTA of the abdomen shows very minimal increase in the size of her AAA. It has extensive mural thrombus but no evidence of leaking or rupture. Patient feels much better blood pressure is down to 150 over 60s. I have strongly encouraged her to follow-up with Dr. Black her mba intern as well as Dr. Herbert her primary care physician. She verbalized understanding. I have reviewed return precautions with the patient and her daughter who is at the bedside. They verbalized understanding all questions are sought and answered. Patient is stable for discharge. ECG Initial ECG Impression Date: February 17, 2021 Initial ECG Impression Time: 09:00 Initial ECG Rate: 70 Initial ECG Rhythm: Normal Sinus Initial ECG Intervals: Normal Initial ECG Impression: Nonspecific Changes Diagnostic Imaging Diagonstic Imaging: Xray Plain Films/CT/US/NM/MRI: chest Comments [facility]. [place], [place] NAME: JORGE A DE LA TORRE MED REC#: [id number] PT STATUS: REG ER : 1945 PHYSICIAN: CARLEEN VENEGAS MD ADMIT DATE: 02/17/21/ER Draft Date of Exam:02/17/21 CT ANGIO ABDOMEN W PROCEDURE: CT angiography of the abdomen with and without contrast. TECHNIQUE: Multiple contiguous axial images were obtained through the abdomen and pelvis after administration of intravenous contrast. 3D MIP reconstructions were made. Auto Exposure Controls were utilized during the CT exam to meet ALARA standards for radiation dose reduction. INDICATION: Abdominal pain. Patient has known abdominal aortic aneurysm. Comparison is made with prior CT from 03/26/2020. The infrarenal abdominal aortic aneurysm does show some increase in size now measuring 3.4 cm AP by 3.5 cm transverse compare with 3.1 cm AP by 3.7 cm transverse on prior exam. Large amount of mural thrombus throughout the aorta is again noted. Aneurysm terminates just above the bifurcation. No evidence of leakage or rupture is identified. Plaque throughout the celiac and SMA was noted. There is calcified plaque bilateral iliacs. The liver is unremarkable. Gallbladder surgically absent. There is no biliary duct dilatation. Pancreas and spleen are unremarkable. No adrenal mass is detected. Kidneys are unremarkable. There are small and large bowel loops of normal caliber. There is no free fluid or fluid collection. IMPRESSION: Increase in size of infrarenal abdominal aortic aneurysm when compared to exam from 03/26/2020. This does contain a large amount of mural thrombus. There is no evidence of leakage or rupture. No dissection is identified. Dictated on workstation # [id number] Dict: 02/17/21 1216 Trans: 02/17/21 1223 CVB [id number] Interpreted by: JUAN WILSON MD Electronically signed by: [facility]. [place], [place] NAME: JORGE A DE LA TORRE [facility] REC#: [id number] PT STATUS: REG ER : 1945 PHYSICIAN: CARLEEN VENEGAS MD ADMIT DATE: 02/17/21/ER Draft Date of Exam:02/17/21 CHEST 1 VIEW, AP/PA ONLY INDICATION: Dizziness and weakness. TIME OF EXAM: 9:06 AM. COMPARISON: Correlation is made with the prior chest from 08/21/2020. FINDINGS: The heart is enlarged but stable. There is a dual-lead cardiac pacemaker. There are some calcified granulomas in the right lung. No infiltrates are seen. There is no effusion or pneumothorax. IMPRESSION: Stable chest. No acute feature is identified. Dictated on workstation # [id number] Dict: 02/17/21 0916 Trans: 02/17/21 0918 [id number] Interpreted by: JUAN WILSON MD Electronically signed by: Departure Impression Primary Impression: Hypertensive emergency Additional Impression: Abdominal pain Qualified Codes: R10.84 - Generalized abdominal pain Disposition: HOME, SELF-CARE Condition: Stable Departure-Patient Inst. Decision time for Depature: 13:02 Referrals: IONA HERBERT MD, ALI MD [facility] Patient Instructions: High Blood Pressure Emergencies Add. Discharge Instructions: Take your medication as prescribed. Please call your primary care physician and Dr. Villalba's office today for a follow-up appointment this week. Come back to the emergency room for any worsening symptoms, new concerns or other emergent complaints. Copy Copies To 1: IONA HERBERT MD Copies To 2: KEN VILLALBA MD [facility] CARLEEN VENEGAS MD February 17, 2021 09:28
[2021-02-17 09:42] LABS: CHLORIDE 102 MMOL/L (98-107); POTASSIUM 3.9 MMOL/L (3.6-5.0); PROTHROMBIN TIME PATIENT 13.5 SEC (12.2-14.7); SODIUM 139 MMOL/L (135-145)
[2021-02-17 09:44] LABS: GLUCOSE 102 MG/DL (70-105); TOTAL PROTEIN 7.8 GM/DL (6.4-8.2)
[2021-02-17 09:45] LABS: CARBON DIOXIDE 25 MMOL/L (21-32)
[2021-02-17 09:46] LABS: BILIRUBIN,TOTAL 0.8 MG/DL (0.1-1.0)
[2021-02-17 09:47] LABS: ALKALINE PHOSPHATASE 110 U/L (40-136)
[2021-02-17 09:48] LABS: CREATININE SERUM 0.91 MG/DL (0.60-1.30); GFR ESTIMATED 60
[2021-02-17 09:49] LABS: BUN/CREATININE RATIO 12
[2021-02-17 09:51] LABS: ALANINE AMINOTRANSFERASE 14 U/L (0-55); CREATINE KINASE 26 U/L (29-168)
[2021-02-17 09:58] LABS: CREATINE KINASE MB 0.9 NG/ML (<6.6)
[2021-02-17] MEDS ORDERED: IOHEXOL 350 MG/ML 100 ML (OMNIPAQUE 350) VIAL IV ONE (11:00)
[2021-02-17] MEDS ORDERED: HOLD METFORMIN - RECEIVED CONTRAST 20 ML VIAL IV SCH (11:00)
[2021-02-17] MEDS ORDERED: NS 100 ML (IVPB) BAG IV ONE (11:00)
[2021-02-17] MEDS ORDERED: CATHETER FLUSH 10 ML SYR IV PRN (11:00)
--- NOTE | 2021-02-17 12:24 | Diagnostic Imaging Report ---
PROCEDURE: CT angiography of the abdomen with and without contrast. TECHNIQUE: Multiple contiguous axial images were obtained through the abdomen and pelvis after administration of intravenous contrast. 3D MIP reconstructions were made. Auto Exposure Controls were utilized during the CT exam to meet ALARA standards for radiation dose reduction. INDICATION: Abdominal pain. Patient has known abdominal aortic aneurysm. Comparison is made with prior CT from 03/26/2020. The infrarenal abdominal aortic aneurysm does show some increase in size now measuring 3.4 cm AP by 3.5 cm transverse compare with 3.1 cm AP by 3.7 cm transverse on prior exam. Large amount of mural thrombus throughout the aorta is again noted. Aneurysm terminates just above the bifurcation. No evidence of leakage or rupture is identified. Plaque throughout the celiac and SMA was noted. There is calcified plaque bilateral iliacs. The liver is unremarkable. Gallbladder surgically absent. There is no biliary duct dilatation. Pancreas and spleen are unremarkable. No adrenal mass is detected. Kidneys are unremarkable. There are small and large bowel loops of normal caliber. There is no free fluid or fluid collection. IMPRESSION: Increase in size of infrarenal abdominal aortic aneurysm when compared to exam from 03/26/2020. This does contain a large amount of mural thrombus. There is no evidence of leakage or rupture. No dissection is identified. Dictated by: Dictated on workstation # [id number]
[2021-02-17 13:11] VITALS: BP 155/76
== END 2021-02-17 13:10 | disposition home or self-care (01) ==
LOC: EDUNIT# 08:36 → ER 08:38
DX: I10 Essential (primary) hypertension (principal); R10.9 Unspecified abdominal pain; J44.9 Chronic obstructive pulmonary disease, unspecified; I25.2 Old myocardial infarction; Z88.0 Allergy status to penicillin; Z88.5 Allergy status to narcotic agent; Z79.82 Long term (current) use of aspirin; Z79.899 Other long term (current) drug therapy
CPT/HCPCS: 36415; 71045; 74175; 80053; 82550; 82553; 84484; 85025; 85610; 86850; 86900; 86901; 93005

== ENCOUNTER 2021-06-13 09:13 | Emergency (ER) | payer MEDICARE ==
[~2021-06-13] VITALS: Ht 152.4 cm; Wt 55.3 kg
[2021-06-13 09:28] VITALS: BP 195/119
[2021-06-13 09:43] LABS: BASOPHILS % (AUTO) 1 % (0-10); EOSINOPHILS % (AUTO) 1 % (0-10); HEMATOCRIT 52 % (35-52); HEMOGLOBIN 17.5 g/dL (11.5-16.0); LYMPHOCYTES # (AUTO) 2.3 10^3/uL (1.0-4.0); LYMPHOCYTES % (AUTO) 27 % (12-44); MEAN CORPUSCULAR HEMOGLOBIN 35 pg (25-34); MEAN CORPUSCULAR HGB CONC 33 g/dL (32-36); MEAN CORPUSCULAR VOLUME 103 fL (80-99); MEAN PLATELET VOLUME 11.2 fL (9.0-12.2); MONOCYTES # (AUTO) 0.6 10^3/uL (0.0-1.0); MONOCYTES % (AUTO) 8 % (0-12); NEUTROPHILS # (AUTO) 5.3 10^3/uL (1.8-7.8); NEUTROPHILS % (AUTO) 64 % (42-75); PLATELET COUNT 161 10^3/uL (130-400); WHITE BLOOD COUNT 8.3 10^3/uL (4.3-11.0)
[2021-06-13 09:54] LABS: POTASSIUM 4.2 MMOL/L (3.6-5.0); PROTHROMBIN TIME PATIENT 13.1 SEC (12.2-14.7)
[2021-06-13 09:55] LABS: CALCIUM 9.6 MG/DL (8.5-10.1)
[2021-06-13 09:56] LABS: TOTAL PROTEIN 8.4 GM/DL (6.4-8.2)
[2021-06-13 09:58] LABS: BILIRUBIN,TOTAL 0.9 MG/DL (0.1-1.0)
[2021-06-13 10:00] LABS: CREATININE SERUM 1.03 MG/DL (0.60-1.30)
--- NOTE | 2021-06-13 10:02 | Diagnostic Imaging Report ---
INDICATION: Chest pain. TIME OF EXAM: 9:57 AM Correlation is made with prior chest 02/17/2021. Heart size is stable. Cardiac pacemaker remains in place. There are calcified granulomas right mid and lower lung field. No infiltrates are seen. There is no effusion or pneumothorax. IMPRESSION: Stable chest. No acute cardiopulmonary process is detected. Dictated by: Dictated on workstation # [id number]
[2021-06-13 10:03] LABS: MAGNESIUM 1.8 MG/DL (1.6-2.4)
[2021-06-13 10:24] LABS: TSH (THYROID ANALYZER) 1.93 UIU/ML (0.35-4.94)
[2021-06-13] MEDS ORDERED: CATHETER FLUSH 10 ML SYR IV PRN (11:00)
[2021-06-13] MEDS ORDERED: NS 100 ML (IVPB) BAG IV ONE (11:00)
[2021-06-13] MEDS ORDERED: IOHEXOL 350 MG/ML 100 ML (OMNIPAQUE 350) VIAL IV ONE (11:00)
[2021-06-13] MEDS ORDERED: HOLD METFORMIN - RECEIVED CONTRAST 20 ML VIAL IV SCH (11:00)
--- NOTE | 2021-06-13 12:03 | Diagnostic Imaging Report ---
PROCEDURE: CT angiography of the head and CT angiography of the neck with and without contrast. TECHNIQUE: Contiguous noncontrast images were obtained from the skull base through the vertex. After intravenous contrast administration, helical CT angiography of the neck was performed. Source data was reformatted into 3D MIP projections. Delayed post contrast acquisition was also obtained. Auto Exposure Controls were utilized during the CT exam to meet ALARA standards for radiation dose reduction. INDICATION: Dizziness and lightheadedness as well as elevated blood pressure. CTA NECK: There is a three-vessel branching pattern to aortic arch. There is a moderate amount of plaque of the origin of the left subclavian artery. Right and left common carotid arteries appear to be patent. There is a stent on the left commencing in the left common carotid artery and extending into the left internal carotid artery. These appear to be patent. There is moderate plaquing at the right carotid bifurcation but no high-grade stenosis is seen. There is some tortuosity of the proximal right internal carotid artery. There is also moderate amount of calcified plaque right carotid siphon but no high-grade stenosis is identified. There is moderate plaquing in the left internal carotid artery but no high-grade stenosis is seen. There is a moderate amount of plaque in the left carotid siphon. The origins to both vertebral arteries are patent. Left vertebral artery is slightly small in its proximal portion but patent. Vertebral arteries are patent throughout their course. CT HEAD: The basilar artery is patent. Right and left posterior cerebral arteries are patent. The M1 and M2 segments of the middle cervical arteries are patent bilaterally. Right and left anterior cerebral arteries are patent. No large branch occlusion or thromboembolism is identified. Precontrast head CT portion does show prominence of ventricles and sulci consistent with the patient's age. There is moderate periventricular hypodensity consistent with chronic microvascular ischemia. 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 The delayed postcontrast images are without evidence of an enhancing lesion. There is an approximately 3 to 4 mm focus of hyperdensity in the right occipital lobe suggestive of a small area of parenchymal hemorrhage. No other areas of hemorrhage are identified. IMPRESSION: 1. Left carotid stent. Stent appears to be widely patent. 2. There is moderate bilateral carotid plaquing. No large branch occlusion or thromboembolism is identified. 3. Tiny acute intra-axial hematoma right occipital lobe. No other area of hemorrhage is detected. Dictated by: Dictated on workstation # [id number]
--- NOTE | 2021-06-13 13:16 | ED Neurological Problem ---
General Chief Complaint: Dizziness/Syncope Stated Complaint: DIZZINESS Nursing Triage Note: pt presents to ed via ems from [facility] with complaints of dizziness x 3 months and fall one month ago where she hit her head. [facility] referred pt to ed due to her hypertension. Source: patient, old records Exam Limitations: no limitations History of Present Illness Date Seen by Provider: Jun 13, 2021 Time Seen by Provider: 09:28 Allergies and Home Medications Allergies Coded Allergies: morphine (Verified Allergy, Intermediate, Nausea, 08/29/19) "projectile vomiting" Penicillins (Verified Allergy, Mild, RASH, 04/01/18) codeine (Unverified Allergy, Mild, ITCH, 01/30/14) Patient Home Medication List Aspirin (Aspirin) 81 Mg Tab.chew, 81 MG PO DAILY Prescribed by: KEN HUDDLESTON on 09/27/19 0921 Atorvastatin Calcium (Atorvastatin Calcium) 40 Mg Tablet, 40 MG PO DAILY, (Reported) Entered as Reported by: WATSON BOB on 09/26/19 0720 Clopidogrel Bisulfate (Plavix) 75 Mg Tablet, 75 MG PO DAILY Prescribed by: KEN HUDDLESTON on 09/27/19 0921 Hydrocodone/Acetaminophen (Canby 10-325 Tablet) 1 Each Tablet, 1 TAB PO Q6H PRN for PAIN-MODERATE (5-7), (Reported) Entered as Reported by: CLAYTON RITTER on 05/11/17 0924 Metoprolol Succinate (Toprol Xl) 100 Mg Tab.er.24h, 100 MG PO BID Prescribed by: KEN HUDDLESTON on 09/27/19 0921 Polyethylene Glycol 3350 (Miralax) 17 Gm Powd.pack, 17 GM PO DAILY PRN for CONSTIPATION-2ND LINE, (Reported) Entered as Reported by: WATSON BOB on 08/29/19 0916 Past Tnjevuu-Gidxaj-Rcpqnq Hx Patient Social History Tobacco Use?: Yes Tobacco type used: Cigarettes Smoking Status: Current Everyday Smoker Substance use?: No Alcohol Use?: Yes Alcohol Frequency: Once in a while Pt feels they are or have been: No Seasonal Allergies Seasonal Allergies: No Past Medical History Surgery/Hospitalization HX: pmh: copd, hypertension, past hist colon ca, cad, 20 cardiac stents, pacemaker, hysterectomy. Surgeries: Yes (MULT STENTS THRU-OUT BODY, NECK SURGERY) Abdominal, Section, Coronary Stent, Gallbladder, Hysterectomy Respiratory: Yes Pneumonia, COPD Currently Using CPAP: No Currently Using BIPAP: No Cardiac: Yes (OK X8, HEART STENTS X29) Coronary Artery Disease, Heart Attack, Hypertension Neurological: No Reproductive Disorders: No Genitourinary: Yes (UTI) Gastrointestinal: Yes Diverticulosis, Hemorrhoids, Ulcer Musculoskeletal: Yes Arthritis, Fibromyalgia Endocrine: No HEENT: No Cancer: Yes Colon Did You Recieve Any Treatments: Yes What Type of Treatment Did You: Chemotherapy, Radiation, Surgical Intervention Psychosocial: No Integumentary: No Blood Disorders: No Adverse Reaction/Blood Tranf: No Family Medical History Heart Disease, Cancer Physical Exam Vital Signs Vital Signs - First Documented 06/13/21 09:28 Temp 36.1 Pulse 95 Resp 18 B/P (MAP) 195/119 (144) Pulse Ox 95 Capillary Refill : Less Than 3 Seconds Height, Weight, BMI Height: 5'0.00" Weight: 139lbs. 2.0oz. 63.627402ex; 23.00 BMI Method:Stated Progress/Results/Core Measures Results/Orders Lab Results Laboratory Tests Test 06/13/21 09:30 Range/Units White Blood Count 8.3 4.3-11.0 10^3/uL Red Blood Count 5.07 3.80-5.11 10^6/uL Hemoglobin 17.5 H 11.5-16.0 g/dL Hematocrit 52 35-52 % Mean Corpuscular Volume 103 H 80-99 fL Mean Corpuscular Hemoglobin 35 H 25-34 pg Mean Corpuscular Hemoglobin Concent 33 32-36 g/dL Red Cell Distribution Width 13.6 10.0-14.5 % Platelet Count 161 130-400 10^3/uL Mean Platelet Volume 11.2 9.0-12.2 fL Immature Granulocyte % (Auto) 0 % Neutrophils (%) (Auto) 64 42-75 % Lymphocytes (%) (Auto) 27 12-44 % Monocytes (%) (Auto) 8 0-12 % Eosinophils (%) (Auto) 1 0-10 % Basophils (%) (Auto) 1 0-10 % Neutrophils # (Auto) 5.3 1.8-7.8 10^3/uL Lymphocytes # (Auto) 2.3 1.0-4.0 10^3/uL Monocytes # (Auto) 0.6 0.0-1.0 10^3/uL Eosinophils # (Auto) 0.0 0.0-0.3 10^3/uL Basophils # (Auto) 0.0 0.0-0.1 10^3/uL Immature Granulocyte # (Auto) 0.0 0.0-0.1 10^3/uL Prothrombin Time 13.1 12.2-14.7 SEC INR Comment 1.0 0.8-1.4 Activated Partial Thromboplast Time 33 24-35 SEC Sodium Level 140 135-145 MMOL/L Potassium Level 4.2 3.6-5.0 MMOL/L Chloride Level 103 98-107 MMOL/L Carbon Dioxide Level 25 21-32 MMOL/L Anion Gap 12 5-14 MMOL/L Blood Urea Nitrogen 11 7-18 MG/DL Creatinine 1.03 0.60-1.30 MG/DL Estimat Glomerular Filtration Rate 52 BUN/Creatinine Ratio 11 Glucose Level 134 H 70-105 MG/DL Calcium Level 9.6 8.5-10.1 MG/DL Corrected Calcium 9.6 8.5-10.1 MG/DL Magnesium Level 1.8 1.6-2.4 MG/DL Total Bilirubin 0.9 0.1-1.0 MG/DL Aspartate Amino Transf (AST/SGOT) 31 5-34 U/L Alanine Aminotransferase (ALT/SGPT) 20 0-55 U/L Alkaline Phosphatase 108 40-136 U/L Myoglobin 31.5 10.0-92.0 NG/ML Troponin I < 0.028 <0.028 NG/ML C-Reactive Protein High Sensitivity 2.45 H 0.00-0.50 MG/DL B-Type Natriuretic Peptide 181.4 H <100.0 PG/ML Total Protein 8.4 H 6.4-8.2 GM/DL Albumin 4.0 3.2-4.5 GM/DL TSH [place] Testing 1.93 0.35-4.94 UIU/ML Serum Alcohol < 10 <10 MG/DL My Orders Orders - JAVIER ESCALANTE MD Alcohol (06/13/21 09:28) BNP (06/13/21 09:28) Hs C Reactive Protein (06/13/21 09:28) Cbc With Automated Diff (06/13/21 09:28) Magnesium (06/13/21 09:28) Chest 1 View, Ap/Pa Only (06/13/21 09:28) Ekg Tracing (06/13/21 09:28) Comprehensive Metabolic Panel (06/13/21:28) Myoglobin Serum (06/13/21:28) Protime With Inr (06/13/21:28) Partial Thromboplastin Time (06/13/21 09:28) O2 (06/13/21:28) Monitor-Rhythm Ecg Trace Only (06/13/21:28) Ed Iv/Invasive Line Start (06/13/21 09:28) Troponin I (06/13/21:28) Thyroid Analyzer (06/13/21:) Ct Angio Head/Neck (06/13/21 10:50) Iohexol Injection (Omnipaque 350 Mg/Ml 1 (06/13/21 11:00) Received Contrast (Hold Metformin- Contr (06/13/21 11:00) Sodium Chloride Flush (Catheter Flush Sy (06/13/21 11:00) Ns (Ivpb) (Sodium Chloride 0.9% Ivpb Bag (06/13/21 11:00) Medications Given in ED Current Medications Medications Dose Ordered Sig/Ha Route Start Time Stop Time Status Last Admin Dose Admin Iohexol 75 ml ONCE ONCE IV 06/13/21 11:00 06/13/21 11:05 DC 06/13/21 11:26 75 ML Sodium Chloride 10 ml NEEDED PRN IV 06/13/21 11:00 06/13/21 13:07 DC 06/13/21 11:26 10 ML Sodium Chloride 100 ml ONCE ONCE IV 06/13/21 11:00 06/13/21 11:05 DC 06/13/21 11:26 100 ML Vital Signs/I&O 06/13/21 09:28 Temp 36.1 Pulse 95 Resp 18 B/P (MAP) 195/119 (144) Pulse Ox 95 Blood Pressure Mean: 144 Progress Progress Note : Time: 13:12 Progress Note Work-up included labs, EKG, and CT angiogram of the head and neck. Vasculature showed no large vessel occlusions or carotid stenosis on the angiogram. However, there was a 4 mm right occipital intraparenchymal hematoma of indeterminate age noted. Given patient's symptoms and Plavix use, this prompted phone calls to Dr. Jones and Dr. Pitt. Dr. Pitt recommended consultation with neurosurgery and transfer if admission was recommended. I spoke with Dr. Mcclure at [facility] at [phone]. He recommended 48 hours of inpatient observation with repeat head imaging. I discussed the issue at relative length with the patient. She has a family reunion in [place], [place] tomorrow that is very important to her. She is electing to leave AGAINST MEDICAL ADVICE with prioritization on that family event. We did discuss risks of leaving AGAINST MEDICAL ADVICE which could include drastic neurologic consequences including . Despite this she and her daughter left AGAINST MEDICAL ADVICE. She departed in her daughter's care. We did discuss ways to mitigate her hypertension including increasing amlodipine from 5 mg to 10 mg daily we also discussed stopping aspirin and Plavix until repeat imaging of her head could be obtained. She states she is more than a year out from any stenting procedures and therefore should be able to stop aspirin and Plavix with relative safety to her stents. I also discussed the situation with Dr. Herbert, her PCP, to inform her of the patient's status. Initial ECG Impression Date: Jun 13, 2021 Initial ECG Impression Time: 09:37 Initial ECG Rate: 93 Initial ECG Rhythm: Normal Sinus Comment Sinus rhythm with no ST elevation or depression. PVC noted. Left axis deviation. No abnormal intervals. Diagnostic Imaging Diagonstic Imaging: CT Plain Films/CT/US/NM/MRI: other (Angiogram head and neck) Comments CT angiogram head and neck viewed by me. Discussed with radiologist. Report reviewed. See report below: NAME: JORGE A DE LA TORRE [facility] REC#: [id number] PT STATUS: DEP ER : 1945 PHYSICIAN: JAVIER ESCALANTE MD ADMIT DATE: 06/13/21/ER Signed Date of Exam:06/13/21 CT ANGIO HEAD/NECK PROCEDURE: CT angiography of the head and CT angiography of the neck with and without contrast. TECHNIQUE: Contiguous noncontrast images were obtained from the skull base through the vertex. After intravenous contrast administration, helical CT angiography of the neck was performed. Source data was reformatted into 3D MIP projections. Delayed post contrast acquisition was also obtained. Auto Exposure Controls were utilized during the CT exam to meet ALARA standards for radiation dose reduction. INDICATION: Dizziness and lightheadedness as well as elevated blood pressure. CTA NECK: There is a three-vessel branching pattern to aortic arch. There is a moderate amount of plaque of the origin of the left subclavian artery. Right and left common carotid arteries appear to be patent. There is a stent on the left commencing in the left common carotid artery and extending into the left internal carotid artery. These appear to be patent. There is moderate plaquing at the right carotid bifurcation but no high-grade stenosis is seen. There is some tortuosity of the proximal right internal carotid artery. There is also moderate amount of calcified plaque right carotid siphon but no high-grade stenosis is identified. There is moderate plaquing in the left internal carotid artery but no high-grade stenosis is seen. There is a moderate amount of plaque in the left carotid siphon. The origins to both vertebral arteries are patent. Left vertebral artery is slightly small in its proximal portion but patent. Vertebral arteries are patent throughout their course. CT HEAD: The basilar artery is patent. Right and left posterior cerebral arteries are patent. The M1 and M2 segments of the middle cervical arteries are patent bilaterally. Right and left anterior cerebral arteries are patent. No large branch occlusion or thromboembolism is identified. Precontrast head CT portion does show prominence of ventricles and sulci consistent with the patient's age. There is moderate periventricular hypodensity consistent with chronic microvascular ischemia. 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 The delayed postcontrast images are without evidence of an enhancing lesion. There is an approximately 3 to 4 mm focus of hyperdensity in the right occipital lobe suggestive of a small area of parenchymal hemorrhage. No other areas of hemorrhage are identified. IMPRESSION: 1. Left carotid stent. Stent appears to be widely patent. 2. There is moderate bilateral carotid plaquing. No large branch occlusion or thromboembolism is identified. 3. Tiny acute intra-axial hematoma right occipital lobe. No other area of hemorrhage is detected. Dictated by: Dictated on workstation # [id number] Dict: 06/13/21 1139 Trans: 06/13/21 1537 CVB [id number] Interpreted by: JUAN JONES MD Electronically signed by: JUAN JONES MD 06/13/21 1537 Diagonstic Imaging: Xray Plain Films/CT/US/NM/MRI: chest Comments NAME: JORGE A DE LA TORRE [facility] REC#: [id number] PT STATUS: DEP ER : 1945 PHYSICIAN: JAVIER ESCALANTE MD ADMIT DATE: 06/13/21/ER Signed Date of Exam:06/13/21 CHEST 1 VIEW, AP/PA ONLY INDICATION: Chest pain. TIME OF EXAM: 9:57 AM Correlation is made with prior chest 02/17/2021. Heart size is stable. Cardiac pacemaker remains in place. There are calcified granulomas right mid and lower lung field. No infiltrates are seen. There is no effusion or pneumothorax. IMPRESSION: Stable chest. No acute cardiopulmonary process is detected. Dictated by: Dictated on workstation # [id number] Dict: 06/13/21 0959 Trans: 06/13/21 1537 CVB [id number] Interpreted by: JUAN JONES MD Electronically signed by: JUAN JONES MD 06/13/21 1537 Departure Impression Primary Impression: Intracranial hemorrhage Additional Impressions: Lightheadedness Dizziness Chest pain Qualified Codes: R07.9 - Chest pain, unspecified Left against medical advice Disposition: 07 AGAINST MEDICAL ADVICE Departure-Patient Inst. Referrals: IONA HERBERT MD (PCP) Primary Care Physician JAVIER ESCALANTE MD Jun 13, 2021 13:16
== END 2021-06-13 13:07 | disposition left against medical advice (07) ==
LOC: EDUNIT# 09:13 → ER 09:15
DX: I62.9 Nontraumatic intracranial hemorrhage, unspecified (principal); R07.9 Chest pain, unspecified; J44.9 Chronic obstructive pulmonary disease, unspecified; I25.2 Old myocardial infarction; I10 Essential (primary) hypertension; E78.00 Pure hypercholesterolemia, unspecified; I25.10 Atherosclerotic heart disease of native coronary artery without angina pectoris; F17.210 Nicotine dependence, cigarettes, uncomplicated; Z95.5 Presence of coronary angioplasty implant and graft; Z95.0 Presence of cardiac pacemaker; Z79.01 Long term (current) use of anticoagulants; Z79.899 Other long term (current) drug therapy; Z79.82 Long term (current) use of aspirin
CPT/HCPCS: 70496; 70498; 71045; 80053; 83735; 83874; 83880; 84443; 84484; 85025; 85610; 85730; 86141; 93005; 93041; 99284; G0480; 36415; 80320

== ENCOUNTER → 2021-09-11 | Outpatient (CLI) | payer MEDICARE ==
--- NOTE | 2021-09-11 07:51 | Diagnostic Imaging Report ---
EXAMINATION: CT chest without contrast. TECHNIQUE: Multiple contiguous axial images were obtained through the chest without the use of intravenous contrast. All CT scans use one or more of the following dose optimizing techniques: automated exposure control, MA and/or KvP adjustment based on patient size and exam type or iterative reconstruction. HISTORY: Hemoptysis COMPARISON: None available. FINDINGS: There is no edema or pneumonia. No pleural effusion. No pneumothorax. No suspicious nodules. There are scattered calcified granulomas in both lungs. There is mild atelectasis in the right base. There is no axillary or supraclavicular lymphadenopathy. There is no mediastinal lymphadenopathy. Pacemaker is present. There are stents in the coronary arteries. There is fat deposition in the right and left ventricular free arrieta. The right ventricular fat is subepicardial rather than subendocardial. Heart size is normal. There are mild coronary artery calcifications. No pericardial effusion. Aorta is normal in caliber. Limited views of the upper abdomen show changes of cholecystectomy. There are no suspicious osseus lesions. IMPRESSION: 1. No etiology for hemoptysis identified. 2. Fat deposition in subepicardial region of the right ventricle as well as within the left ventricular free wall. 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 Dictated by: Dictated on workstation # [id number]
== END ==
LOC: RAD 08:10
PROVIDERS: ATTEND Family Medicine
DX: R04.2 Hemoptysis (principal); R41.82 Altered mental status, unspecified; I51.5 Myocardial degeneration
CPT/HCPCS: 71250

== ENCOUNTER 2021-10-31 17:56 | Emergency (ER) | payer MEDICARE ==
[~2021-10-31] VITALS: Ht 152.4 cm; Wt 55.3 kg
--- NOTE | 2021-10-31 18:19 | ED Neurological Problem ---
General Stated Complaint: STROKE Source: EMS, old records (ALL PMH IS FROM OLD RECORD) Exam Limitations: clinical condition (PT NOT TALKING ON ARRIVAL) History of Present Illness Date Seen by Provider: Oct 31, 2021 Time Seen by Provider: 17:55 Initial Comments PT ARRIVES VIA EMS FROM HOME IN [place]--PT LIVES ALONE PT WAS FOUND BY FAMILY THIS EVENING UNRESPONSIVE ON THE COUCH PT WAS AWAKE ON EMS ARRIVAL AT THE SCENE PT NOTED TO HAVE RIGHT FACIAL DROOP AND RIGHT SIDE WEAKNESS STROKE ACTIVATION INITIATED PT WAS LAST SEEN AT 2100 LAST NIGHT AND WAS NORMAL FAMILY TALKED TO HER ON THE PHONE THIS AM AT 0800 FAMILY CALLED HER THIS EVENING AND SHE DID NOT ANSWER PHONE, SO THEY WENT TO HER HOUSE TO CHECK ON HER AND FOUND HER IN ABOVE CONDITION. EMS NOTE THAT THERE WERE GROCERIES OUTSIDE OF THE HOUSE--NO RECEIPT FOUND TO DETERMINE TIME OF PURCHASE PT IS NOT TALKING, BUT NODS HEAD YES/NO PT HAS VERY MINIMAL MOVEMENT OF RIGHT ARM AND LEG VITALS FOR EMS: BP 210/140'S HR 50 TO 120 BLOOD GLUCOSE 119 NO FAMILY IS HERE WITH PT ON ARRIVAL. NO OTHER INFORMATION IS OBTAINABLE ON ARRIVAL PT WAS LAST HERE 06/13/2021 FOR DIZZINESS AND FALLING--PT WAS ON PLAVIX AND ASPIRIN AT THAT TIME, AND SUSTAINED A SMALL RIGHT OCCIPITAL LOBE BLEED. PT LEFT AMA FROM ER. ON VISIT HERE 02/17/21, PT WAS ON COUMADIN AT THAT TIME. PT HAS ALSO BEEN HERE IN THE PAST FOR SEVERE HTN, WITH BLOOD PRESSURES IN 240'S/150'S PT WITH HISTORY OF EXTENSIVE ASVD WITH MULTIPLE STENTS IN MULTIPLE PARTS OF BODY, AND HAS A KNOWN AAA, AND IS FOLLOWED BY DR. COWAN AT [place]. SHE ALSO HAS A PACEMAKER. PER OLD CHART, PT'S CLINICAL PROGRAMMER IS DR. HUDDLESTON, AND PCP IS DR. HERBERT WITH [facility]. [place]CP: [facility] [place] and Home Medications Allergies Coded Allergies: morphine (Verified Allergy, Intermediate, Nausea, 08/29/19) "projectile vomiting" Penicillins (Verified Allergy, Mild, RASH, 04/01/18) codeine (Unverified Allergy, Mild, ITCH, 01/30/14) Patient Home Medication List Home Medication List Reviewed: Yes Aspirin (Aspirin) 81 Mg Tab.chew, 81 MG PO DAILY Prescribed by: KEN HUDDLESTON on 09/27/19 0921 Atorvastatin Calcium (Atorvastatin Calcium) 40 Mg Tablet, 40 MG PO DAILY, (Reported) Entered as Reported by: WATSON BOB on 09/26/19 0720 Clopidogrel Bisulfate (Plavix) 75 Mg Tablet, 75 MG PO DAILY Prescribed by: KEN HUDDLESTON on 09/27/19 0921 Hydrocodone/Acetaminophen ([place] 10-325 Tablet) 1 Each Tablet, 1 TAB PO Q6H PRN for PAIN-MODERATE (5-7), (Reported) Entered as Reported by: CLAYTON RITTER on 05/11/17 0924 Metoprolol Succinate (Toprol Xl) 100 Mg Tab.er.24h, 100 MG PO BID Prescribed by: KNE HUDDLESTON on 09/27/19 09 Polyethylene Glycol 3350 (Miralax) 17 Gm Powd.pack, 17 GM PO DAILY PRN for CONSTIPATION-2ND LINE, (Reported) Entered as Reported by: WATSON BOB on 08/29/19 0916 Review of Systems Review of Systems Constitutional: other (UNABLE TO OBTAIN FROM PT) Psychiatric/Neurological: See HPI Past Hibazvc-Lhbxhs-Cwskad Hx Seasonal Allergies Seasonal Allergies: No Past Medical History Surgery/Hospitalization HX: pmh: copd, hypertension, past hist colon ca, cad, 20 +cardiac stents, pacemaker, hysterectomy. Surgeries: Yes (MULT STENTS THRU-OUT BODY, NECK SURGERY) Abdominal, Cardiac, Section, Coronary Stent, Gallbladder, Hysterectomy, Pacemaker, Vascular Surgery Respiratory: Yes Pneumonia, COPD Currently Using CPAP: No Currently Using BIPAP: No Cardiac: Yes (OR X8, HEART STENTS X29;AAA; PACEMAKER) Aneurysm, Coronary Artery Disease, Heart Attack, High Cholesterol, Hypertension, Peripheral Vascular Neurological: Yes (OLD RIGHT OCCIPTIAL LOBE HEMORRHAGE 06/2021) Stroke Reproductive Disorders: No Genitourinary: Yes (UTI) Gastrointestinal: Yes (COLON CANCER) Chronic Constipation, Diverticulosis, Hemorrhoids, Ulcer Musculoskeletal: Yes Arthritis, Fibromyalgia Endocrine: No HEENT: No Cancer: Yes Colon Did You Recieve Any Treatments: Yes What Type of Treatment Did You: Chemotherapy, Radiation, Surgical Intervention Psychosocial: Yes Anxiety, Depression Integumentary: No Blood Disorders: No Adverse Reaction/Blood Tranf: No Family Medical History Heart Disease, Cancer SOCIAL HISTORY: -SMOKES 1 1/2 PPD -DRINKS DAILY--" A COUPLE OF DRINKS" -DRUGS--DENIES USE PAST SURGICAL HISTORY: -MULTIPLE CARDIAC CATHS WITH MULTIPLE STENTS TO HEART, WELL PERIPHERAL STENTS -HYSTERECTOMY/BILATERAL SALPINGO-OOPHORECTOMY/APPENDECTOMY ADDITIONAL PMH: -KNOWN ABDOMINAL AORTIC ANEURYSM--FOLLOWED BY DR. COWAN AT [place]. CT 02/17/21: Comparison is made with prior CT from 03/26/2020. The infrarenal abdominal aortic aneurysm does show some increase in size now measuring 3.4 cm AP by 3.5 cm transverse compare with 3.1 cm AP by 3.7 cm transverse on prior exam. Large amount of mural thrombus throughout the aorta is again noted. Aneurysm terminates just above the bifurcation. No evidence of leakage or rupture is identified. Plaque throughout the celiac and SMA was noted. There is calcified plaque bilateral iliacs. The liver is unremarkable. Gallbladder surgically absent. There is no biliary duct dilatation. Pancreas and spleen are unremarkable. No adrenal mass is detected. Kidneys are unremarkable. There are small and large bowel loops of normal caliber. There is no free fluid or fluid collection. IMPRESSION: Increase in size of infrarenal abdominal aortic aneurysm when compared to exam from 03/26/2020. This does contain a large amount of mural thrombus. There is no evidence of leakage or rupture. No dissection is identified. Physical Exam Vital Signs Vital Signs - First Documented 10/31/21 17:56 Temp 36.4 Pulse 56 Resp 7 B/P (MAP) 223/99 (140) Pulse Ox 98 O2 Delivery Room Air Capillary Refill : Height, Weight, BMI Height: 5'0.00" Weight: 139lbs. 2.0oz. 63.533804gs; 23.00 BMI Method:Stated General Appearance: WD/WN, no apparent distress, other (PT IS NOT TALKING, BUT SEEMS TO NOD/SHAKE HEAD YES/NO APPROPRIATELY ) HEENT: PERRL/EOMI Neck: normal inspection Respiratory: normal breath sounds, no respiratory distress, no accessory muscle use Cardiovascular: regular rate, rhythm, no edema, no JVD, no murmur Gastrointestinal: non tender, soft Back: No normal inspection Extremities: no pedal edema, normal capillary refill Neurologic/Psychiatric: aphasia, facial droop, motor weakness, other (RIGHT FACIAL DROOP, RIGHT SIDE WEAKNESS, RIGHT ARM AND HAND HELD IN FLEXION, RIGHT LEG ESSENTIALLY FLACCID. UNABLE TO DETERMINE SENSATION AT THIS TIME. NO OBVIOUS RIGHT SIDED NEGLECT, DOES TURN HEAD TO RIGHT WHEN APPROACHED AND TALKED TO ON RIGHT SIDE OF BODY, BUT DOES NOT MAKE EYE CONTACT. UNABLE TO DETERMINE VISUAL HERNADEZ AT THIS TIME. ) Crainal Nerves: facial droop (ON RIGHT) Motor/Sensory: weak motor strength RUE, weak motor strength RLE Skin: normal color, warm/dry Stroke Onset of Symptoms Onset of Symptoms: No Symptoms onset unknown: Yes NIH Stroke Scale Assessment Select: Initial LIMITED BY INABILITY TO SPEAK AND NOT FOLLOWING COMMANDS WELL AT THIS TIME. Level of Consciousness: 0=Alert (0), Level of Consciousness- Questions: 2=Answer neither question (2), LOC Commands: 2=Performs neither task (2), Facial Movement (Facial Paresis): 2=Partial paralysis (2), Motor Function-Arms Right: 4=No movement (4), Motor Function-Arms Left: 2=Some effort/gravity (2), Motor Function-Legs Right: 4=No movement (4), Motor Function-Legs Left: 2=Some effort/gravity (2), Best Language: 3=Mute (3), Total: 21 Stroke Thrombolytic Exclusion Age 18 or Over: Yes Intracranial Hemorrhage: Yes Severe Hypertension: Yes Subarachnoid Hemorrhage: Yes (INTRACRANIAL BLEED PRESENT) TPA Contraindication: Yes IV - TPa Received IV - TPa Procedure Performed?: No Progress/Results/Core Measures Results/Orders Lab Results Laboratory Tests Test 10/31/21 18:23 10/31/21 18:26 10/31/21 18:31 10/31/21 18:41 Range/Units Urine Color YELLOW Urine Clarity CLEAR Urine pH 6.0 5-9 Urine Specific Staples >=1.030 1.016-1.022 Urine Protein 2+ H NEGATIVE Urine Glucose (UA) NEGATIVE NEGATIVE Urine Ketones 1+ H NEGATIVE Urine Nitrite NEGATIVE NEGATIVE Urine Bilirubin 1+ H NEGATIVE Urine Urobilinogen 0.2 < = 1.0 MG/DL Urine Leukocyte Esterase NEGATIVE NEGATIVE Urine RBC (Auto) TRACE-I H NEGATIVE Urine RBC 0-2 /HPF Urine WBC 0-2 /HPF Urine Squamous Epithelial Cells 0-2 /HPF Urine Crystals NONE /LPF Urine Bacteria NEGATIVE /HPF Urine Casts PRESENT /LPF Urine Hyaline Casts 0-2 H /LPF Urine Mucus NEGATIVE /LPF Urine Culture Indicated NO Influenza Type A (RT-PCR) Not Detected Not Detecte Influenza Type B (RT-PCR) Not Detected Not Detecte SARS-CoV-2 RNA (RT-PCR) Not Detected Not Detecte Serum Alcohol < 10 <10 MG/DL White Blood Count 8.0 4.3-11.0 10^3/uL Red Blood Count 4.73 3.80-5.11 10^6/uL Hemoglobin 16.1 H 11.5-16.0 g/dL Hematocrit 48 35-52 % Mean Corpuscular Volume 101 H 80-99 fL Mean Corpuscular Hemoglobin 34 25-34 pg Mean Corpuscular Hemoglobin Concent 34 32-36 g/dL Red Cell Distribution Width 13.0 10.0-14.5 % Platelet Count 166 130-400 10^3/uL Mean Platelet Volume 11.6 9.0-12.2 fL Immature Granulocyte % (Auto) 0 % Neutrophils (%) (Auto) 66 42-75 % Lymphocytes (%) (Auto) 26 12-44 % Monocytes (%) (Auto) 7 0-12 % Eosinophils (%) (Auto) 0 0-10 % Basophils (%) (Auto) 1 0-10 % Neutrophils # (Auto) 5.2 1.8-7.8 10^3/uL Lymphocytes # (Auto) 2.1 1.0-4.0 10^3/uL Monocytes # (Auto) 0.6 0.0-1.0 10^3/uL Eosinophils # (Auto) 0.0 0.0-0.3 10^3/uL Basophils # (Auto) 0.1 0.0-0.1 10^3/uL Immature Granulocyte # (Auto) 0.0 0.0-0.1 10^3/uL Erythrocyte Sedimentation Rate 13 0-30 MM/HR Prothrombin Time 14.4 12.2-14.7 SEC INR Comment 1.1 0.8-1.4 Activated Partial Thromboplast Time 38 H 24-35 SEC D-Dimer 3.86 H 0.00-0.49 UG/ML Sodium Level 138 135-145 MMOL/L Potassium Level 4.4 3.6-5.0 MMOL/L Chloride Level 105 98-107 MMOL/L Carbon Dioxide Level 20 L 21-32 MMOL/L Anion Gap 13 5-14 MMOL/L Blood Urea Nitrogen 20 H 7-18 MG/DL Creatinine 1.02 0.60-1.30 MG/DL Estimat Glomerular Filtration Rate 57 BUN/Creatinine Ratio 20 Glucose Level 106 H 70-105 MG/DL Calcium Level 9.6 8.5-10.1 MG/DL Corrected Calcium 9.7 8.5-10.1 MG/DL Total Bilirubin 0.6 0.1-1.0 MG/DL Aspartate Amino Transf (AST/SGOT) 23 5-34 U/L Alanine Aminotransferase (ALT/SGPT) 11 0-55 U/L Alkaline Phosphatase 74 40-136 U/L Troponin I 0.351 *H <0.028 NG/ML C-Reactive Protein High Sensitivity 1.36 H 0.00-0.50 MG/DL Total Protein 7.8 6.4-8.2 GM/DL Albumin 3.9 3.2-4.5 GM/DL Procalcitonin 0.05 <0.10 NG/ML My Orders Orders - GUANACO MACKAY DO Cbc With Automated Diff (10/31/21 18:04) Protime With Inr (10/31/21 18:04) Partial Thromboplastin Time (10/31/21 18:04) Comprehensive Metabolic Panel (10/31/21 18:04) Fibrin Degradation Products (10/31/21 18:04) Troponin I Major (10/31/21 18:04) Ua Culture If Indicated (10/31/21 18:04) Chest 1 View, Ap/Pa Only (10/31/21 18:04) Catheter(Urinary) Insert & Ass 03,15 (10/31/21 18:04) Ekg Tracing (10/31/21 18:04) Accucheck Stat ONCE (10/31/21 18:04) Ed Iv/Invasive Line Start (10/31/21 18:04) Ed Iv/Invasive Line Start (10/31/21 18:04) Vital Signs Stroke Patient Q15M (10/31/21 18:04) Ct Head Wo-R/O Stroke (10/31/21 18:04) O2 (10/31/21 18:04) Intake & Output 06,14,22 (10/31/21 18:04) Monitor-Rhythm Ecg Trace Only (10/31/21 18:04) Dysphagia Screening Tool (10/31/21 18:04) Sao2 W/End-Tidal Monitoring (O Q15M (10/31/21 18:04) Procalcitonin (Pct) (10/31/21 18:04) Hs C Reactive Protein (10/31/21 18:04) Erythrocyte Sedimentation Rate (10/31/21 18:04) Covid 19 Inhouse Test (10/31/21 18:04) Influenza A And B By Pcr (10/31/21 18:04) Isolation Central Supply Req (10/31/21 18:04) Hydralazine Injection (Apresoline Inject (10/31/21 18:30) Alcohol (10/31/21 19:35) Drug Screen Stat (Urine) (10/31/21 19:35) Medications Given in ED Current Medications Medications Dose Ordered Sig/Ha Route Start Time Stop Time Status Last Admin Dose Admin Hydralazine HCl 10 mg ONCE ONCE IV 10/31/21 18:30 10/31/21 18:31 DC 10/31/21 18:43 10 MG Vital Signs/I&O 10/31/21 10/31/21 17:56 19:34 Temp 36.4 Pulse 56 49 Resp 7 18 B/P (MAP) 223/99 (140) 166/75 Pulse Ox 98 98 O2 Delivery Room Air Room Air Progress Progress Note : Progress Note GIVEN HYDRALAZINE FOR ELEVATED BP, WITH HR 49-50 BP DOWN TO 160'S/70'S AT TIME OF TRANSFER NO DETERIORATION IN PT'S CONDITION DURING ER STAY NO FAMILY ARRIVE IN ER TO SEE PT. Initial ECG Impression Date: Oct 31, 2021 Initial ECG Impression Time: 18:43 Initial ECG Rate: 50 Comment 100% ATRIAL PACED Diagnostic Imaging Comments CT HEAD--PER RADIOLOGIST REPORT VIA PHONE AT 1822 INDICATION: Right facial droop. Compared with study 06/13/2021. There is a vague region of relative hyperdensity in the left basal ganglia anteriorly as a new finding seen best image 33 series 2 measuring roughly 2.5 x 1.4 cm. While this does not present as substantially hyperdense this is suspicious for an area of perhaps subacute hemorrhage. Peripheral to this hyperdensity is localized white matter hypodensity likely some regional vasogenic edema. No resultant mass effect, shift or herniation. No findings of peripheral cortical edema. On the previous exam there was a small acute intracerebral hematoma in the right occipital lobe, that finding has completely resolved. No evidence for intraventricular hemorrhage, atrophy, intracranial vascular calcifications and periventricular white matter small vessel disease or superimposed stable chronic findings. IMPRESSION: 1. New vague moderate hyperdensity left basal ganglia anteriorly suspicious for perhaps subacute focus of hemorrhage without resultant mass effect, shift, herniation or hydrocephalus. Small amount of peripheral vasogenic edema along its margins are noted also new. 2. Resolution of a previous occipital lobe parenchymal hematoma. 3. Background atrophy and white matter small vessel sequelae as well as old lacunar infarcts superimposed stable. . CXR--PER RADIOLOGIST REPORT AT 1823 COMPARISON: 06/13/2021. FINDINGS: Pacemaker device stable. The lungs are clear. No failure, effusion or pneumothorax. IMPRESSION: No acute appearing abnormality. Reviewed: Reviewed by Me Departure Communication (Admissions) Family Conversation RN SPOKE WITH A GRAND DAUGHTER, WHO LIVES > 1 1/2 HOURS AWAY, AND REPORTS THAT A SON LIVES 3 HOURS AWAY. GRAND DAUGHTER REPORTS TO RN THAT PT DOES NOT HAVE A DPOA OR ADVANCE DIRECTIVES, TO HER KNOWLEDGE. SHE CANNOT PROVIDE ANY PAST MEDICAL HISTORY 1822--CALLED COLTEN MILAN NEUROSURGEON. PLACED ON HOLD 1853--[facility] HAS BEEN CONTACTED FOR TRANSPORT, ETA 24 MINUTES 1854--STILL ON HOLD WITH [facility]. STILL NO RETURN CALL FROM NEUROSURGEON. WILL PAGE ER PHYSICIAN AT THIS TIME. PLACED ON HOLD AGAIN 1902--SPOKE WITH DR. GRAMAJO, NEUROSURGEON, ADVISES TO SEND TO ER. NO ADDITIONAL RECOMMENDATIONS AT THIS TIME. 1909--SPOKE WITH DR. BUSTAMANTE, ER PHYSICIAN. ACCEPTS PT FOR TRANSFER. NO ADDITIONAL RECOMMENDATIONS AT THIS TIME. 1919--[facility] HERE FOR TRANSPORT Impression Primary Impression: Intracranial hemorrhage Additional Impressions: Malignant hypertension Acute right-sided weakness Disposition: XF SHT-TRM HOSP Condition: Unchanged Transfer Transfer Reason: Exceeds level of care Transfer Facility[place] [facility] [place] Method of Transfer: Air ([facility]) Departure-Patient Inst. Referrals: IONA HERBERT MD (PCP/Family) Primary Care Physician GUANACO MACKAY DO Oct 31, 2021 18:19
--- NOTE | 2021-10-31 18:23 | Diagnostic Imaging Report ---
INDICATION: STROKE, hypertension. COMPARISON: 06/13/2021. FINDINGS: Pacemaker device stable. The lungs are clear. No failure, effusion or pneumothorax. IMPRESSION: No acute appearing abnormality. Dictated by: Dictated on workstation # [id number]
--- NOTE | 2021-10-31 18:29 | Diagnostic Imaging Report ---
PROCEDURE: CT head wo r/o stroke. TECHNIQUE: Multiple contiguous axial images were obtained through the brain without the use of intravenous contrast. Auto Exposure Controls were utilized during the CT exam to meet ALARA standards for radiation dose reduction. INDICATION: Right facial droop. Compared with study 06/13/2021. There is a vague region of relative hyperdensity in the left basal ganglia anteriorly as a new finding seen best image 33 series 2 measuring roughly 2.5 x 1.4 cm. While this does not present as substantially hyperdense this is suspicious for an area of perhaps subacute hemorrhage. Peripheral to this hyperdensity is localized white matter hypodensity likely some regional vasogenic edema. No resultant mass effect, shift or herniation. No findings of peripheral cortical edema. On the previous exam there was a small acute intracerebral hematoma in the right occipital lobe, that finding has completely resolved. No evidence for intraventricular hemorrhage, atrophy, intracranial vascular calcifications and periventricular white matter small vessel disease or superimposed stable chronic findings. IMPRESSION: 1. New vague moderate hyperdensity left basal ganglia anteriorly suspicious for perhaps subacute focus of hemorrhage without resultant mass effect, shift, herniation or hydrocephalus. Small amount of peripheral vasogenic edema along its margins are noted also new. 2. Resolution of a previous occipital lobe parenchymal hematoma. 3. Background atrophy and white matter small vessel sequelae as well as old lacunar infarcts superimposed stable. Results discussed with the Emergency Room physician Dictated by: Dictated on workstation # [id number]
[2021-10-31] MEDS ORDERED: hydrALAZINE (APESOLINE) 20 MG/ML VIAL IV ONE (18:30)
[2021-10-31 18:31] LABS: CLARITY,URINE CLEAR; COLOR,URINE YELLOW; GLUCOSE, URINE (UA) NEGATIVE (NEGATIVE); KETONES,URINE 1+ (NEGATIVE); LEUKOCYTE ESTERASE ,URINE NEGATIVE (NEGATIVE); NITRITE,URINE NEGATIVE (NEGATIVE); PROTEIN,URINE 2+ (NEGATIVE)
[2021-10-31 18:52] LABS: BACTERIA,URINE NEGATIVE /HPF; BILIRUBIN,URINE 1+ (NEGATIVE); HYALINE CASTS, URINE 0-2 /LPF; RBC,URINE 0-2 /HPF; SQUAMOUS EPITHELIAL CELL,UR 0-2 /HPF; WBC,URINE 0-2 /HPF
[2021-10-31 19:02] LABS: BASOPHILS # (AUTO) 0.1 10^3/uL (0.0-0.1); BASOPHILS % (AUTO) 1 % (0-10); EOSINOPHILS % (AUTO) 0 % (0-10); HEMATOCRIT 48 % (35-52); HEMOGLOBIN 16.1 g/dL (11.5-16.0); LYMPHOCYTES # (AUTO) 2.1 10^3/uL (1.0-4.0); LYMPHOCYTES % (AUTO) 26 % (12-44); MEAN CORPUSCULAR HEMOGLOBIN 34 pg (25-34); MEAN CORPUSCULAR HGB CONC 34 g/dL (32-36); MEAN CORPUSCULAR VOLUME 101 fL (80-99); MEAN PLATELET VOLUME 11.6 fL (9.0-12.2); MONOCYTES # (AUTO) 0.6 10^3/uL (0.0-1.0); MONOCYTES % (AUTO) 7 % (0-12); NEUTROPHILS # (AUTO) 5.2 10^3/uL (1.8-7.8); NEUTROPHILS % (AUTO) 66 % (42-75); PLATELET COUNT 166 10^3/uL (130-400)
[2021-10-31 19:16] LABS: FIBRIN DEGRADATION PRODUCTS 3.86 UG/ML (0.00-0.49); INR 1.1 (0.8-1.4); PROTHROMBIN TIME PATIENT 14.4 SEC (12.2-14.7)
[2021-10-31 19:23] LABS: ALBUMIN 3.9 GM/DL (3.2-4.5); BILIRUBIN,TOTAL 0.6 MG/DL (0.1-1.0); CALCIUM 9.6 MG/DL (8.5-10.1); CREATININE SERUM 1.02 MG/DL (0.60-1.30); POTASSIUM 4.4 MMOL/L (3.6-5.0); TOTAL PROTEIN 7.8 GM/DL (6.4-8.2)
[2021-10-31 19:34] VITALS: BP 166/75
[2021-10-31 19:44] LABS: ERYTHROCYTE SEDIMENTATION RATE 13 MM/HR (0-30)
[2021-10-31 20:04] LABS: AMPHETAMINE SCREEN, URINE NEGATIVE (NEGATIVE); BARBITURATE SCREEN URINE NEGATIVE (NEGATIVE); BENZODIAZEPINES SCREEN URINE NEGATIVE (NEGATIVE); CANNABINOID SCREEN, URINE NEGATIVE (NEGATIVE); COCAINE SCREEN URINE NEGATIVE (NEGATIVE); METHADONE STAT NEGATIVE (NEGATIVE); METHAMPHETAMINE SCREEN URINE S NEGATIVE (NEGATIVE); OPIATE SCREEN URINE NEGATIVE (NEGATIVE); OXYCODONE STAT NEGATIVE (NEGATIVE); PROPOXYPHENE STAT NEGATIVE (NEGATIVE); TRICYCLIC ANTIDEPRESSANTS SCRE NEGATIVE (NEGATIVE)
== END 2021-10-31 19:34 | disposition short-term general hospital (02) ==
LOC: EDUNIT# 18:02 → ER 18:04
DX: I62.9 Nontraumatic intracranial hemorrhage, unspecified (principal); I10 Essential (primary) hypertension; R53.1 Weakness; J44.9 Chronic obstructive pulmonary disease, unspecified; I25.2 Old myocardial infarction; E78.00 Pure hypercholesterolemia, unspecified; I25.10 Atherosclerotic heart disease of native coronary artery without angina pectoris; Z20.822 Contact with and (suspected) exposure to COVID-19; Z86.73 Personal history of transient ischemic attack (TIA), and cerebral infarction without residual deficits; Z79.82 Long term (current) use of aspirin; Z79.01 Long term (current) use of anticoagulants; Z79.899 Other long term (current) drug therapy
CPT/HCPCS: 51702; 70450; 71045; 80053; 80306; 81000; 84145; 84484; 85025; 85379; 85610; 85652; 85730; 86141; 87636; 93005; 93041; 99285; G0480; 36415; 80320